=== PATIENT | male | born 1945 | race Two or more races ===

== ENCOUNTER 2024-07-04 16:05 | Inpatient (IN) | payer OTHER, MEDICAID ==
[~2024-07-04] VITALS: Ht 170.2 cm; Wt 76.2 kg
[2024-07-04 08:15] VITALS: BP 139/68; PULSE 94; RESP 20; TEMP 98.8; O2SAT 99
[2024-07-04] MEDS ORDERED: MORPHINE SULFATE INJ 2 MG/ml SYRG IV PRN (20:45)
[2024-07-04] MEDS ORDERED: ONDANSETRON HCL 4 MG/2 ML VIAL IV PRN (20:45)
[2024-07-04] MEDS ORDERED: ACETAMINOPHEN 325 MG TAB PO PRN (20:45)
[2024-07-04] MEDS ORDERED: DOCUSATE SOD 100 MG CAP PO PRN (20:45)
[2024-07-04] MEDS ORDERED: NITROGLYCERIN 0.4 MG SL TAB SL PRN (20:45)
[2024-07-04] MEDS ORDERED: VANCOMYCIN PER PHARMACY 0 MG IV SCH (20:45)
[2024-07-04 21:19] VITALS: PULSE 94; RESP 20; O2SAT 98
[2024-07-04] MEDS ORDERED: BUPR-133 PO (21:38)
[2024-07-04] MEDS ORDERED: ATOR20TA50 PO (21:38)
[2024-07-04] MEDS ORDERED: CARB25TA79 PO (21:38)
[2024-07-04] MEDS ORDERED: TAMS1CAP25 PO (21:38)
[2024-07-04] MEDS ORDERED: LEFL20TA PO (21:38)
[2024-07-04 21:43] VITALS: PULSE 101
[2024-07-04] MEDS: CARBIDOPA W LEVODOPA 25/100mg TABLET PO SCH (22:00)
[2024-07-04] MEDS ORDERED: ceFAZolin 1GM/50ML 50 ML IV SCH (22:00)
[2024-07-04] MEDS ORDERED: VANCOMYCIN 1.5GM/300ML IV ONE (22:45)
[2024-07-04] MEDS: ATORVASTATIN 20 MG TAB PO SCH (23:12)
[2024-07-04] MEDS: SODIUM CHLORIDE 0.9% 1,000 ML IV SCH (23:24)
[2024-07-04] MEDS: ceFAZolin 1GM/50ML 50 ML IV SCH (23:34)
[2024-07-04] MEDS: HYDROcodone-ACET 5/325MG TAB PO PRN (23:58)
[2024-07-05] VITALS (8 sets, daily range): BP systolic 90–148; BP diastolic 53–87; PULSE 84–100; RESP 14–19; TEMP 97.7–98.8; O2SAT 90–96
[2024-07-05] MEDS: VANCOMYCIN 1.5GM/300ML IV ONE (00:51)
--- NOTE | 2024-07-05 00:57 | DVHHP2 ---
GERRI MUÑOZ ALTERNATIVE ENERGY ENGINEER 07/05/24 0057: History of Present Illness Reason for Visit: Left foot cellulitis History of Present Illness 79 yo male pt with past medical history of hyperlipidemia, Parkinson's, enlarge prostate w cancer c/o ingrown toe nail on left great toe for the past three days. States that it has become infected and is causing left leg pain. There are no complaints of fevers, chills, shortness of breath, chest pain, palpitations. Patient was initially seen and treated at [facility] emergency department and transferred to [facility] per HMO request. Initial findings as follow: W 10.9, H&H 10.1/32.7, PLT 212 Na 139, K2.9/3.1, BUN 19, creatinine 1.21, GFR 60 LA 2.0/1.0 CRP 14 X-ray left foot no acute fracture or dislocation. Normal left foot xray CXR no evidence of acute thoracic pathology Left Lower extremity venous doppler: no evidence of DVT Cardiovascular: hyperipidemia Heme/Onc: Cancer Renal/: Benign prostatic enlarg. Smoke: No ALCOHOL: none Drugs: None Lives: with Family Review of Systems Constitutional: No: Fever, Chills, Sweats, Weakness, Malaise, Other Eyes: No: Pain, Vision change, Conjunctivae inflammation, Eyelid inflammation, Other, Redness ENT: No: Ear pain, Ear discharge, Nose pain, Nose discharge, Nose congestion, Mouth pain, Mouth swelling, Throat pain, Throat swelling, Other Respiratory: No: Cough, Dry, Shortness of breath, SOB with excertion, Wheezing, Hemoptysis, Pleuritic Pain, Sputum, Wheezing, Other Cardiovascular: No: Chest Pain, Palpitations, Orthopnea, Paroxysmal Noc. Dyspne a, Edema, Lt Headedness, Other Gastrointestinal: No: Nausea, Vomiting, Abdominal Pain, Diarrhea, Constipation, Melena, Hematochezia, Other Musculoskeletal: foot pain Skin: Other (Swelling redness to left foot, left great toe) Neurological: No: Weakness, Numbness, Incoordination, Change in speech, Confusion, Seizures, Other Allergies: Coded Allergies: NO KNOWN ALLERGIES (Unverified , 07/04/24) Medications Current Medications Medications Dose Ordered Sig/Ann-Marie Route Start Time Stop Time Status Last Admin Dose Admin Sodium Chloride 1,000 ml @ 75 mls/hr [id number] IV 07/04/24 20:45 07/05/24 10:04 07/04/24 23:24 75 MLS/HR Docusate Sodium 100 mg BIDPRN PRN PO 07/04/24 20:45 Acetaminophen 650 mg Q6HP PRN PO 07/04/24 20:45 Acetaminophen/ Hydrocodone Bitart 1 tab Q6HPRN PRN PO 07/04/24 20:45 07/04/24 23:58 1 TAB Ondansetron HCl 4 mg Q4HP PRN IV 07/04/24 20:45 Morphine Sulfate 2 mg Q4HPRN PRN IV 07/04/24 20:45 Enoxaparin Sodium 40 mg DAILY SC 07/05/24 10:00 Nitroglycerin 0.4 mg Q5MINP PRN SL 07/04/24 20:45 Morphine Sulfate 2 mg Q30M PRN IV 07/04/24 20:45 Vancomycin HCl 0 ml @ 0 mls/hr UD IV 07/04/24 20:45 UNV Atorvastatin Calcium 20 mg HS PO 07/04/24 22:00 07/04/24 23:12 20 MG Tamsulosin HCl 0.4 mg QPM PO 07/05/24 18:00 Carbidopa/Levodopa 1 tab QID PO 07/04/24 22:00 07/04/24 22:00 1 TAB Cefazolin Sodium 50 ml @ 100 mls/hr Q8HR IV 07/04/24 23:00 07/04/24 23:34 100 MLS/HR Exam General Appearance: Alert, Oriented X3, Cooperative, mild distress HEENT: Atraumatic, PERRLA, EOMI Respiratory: Clear to auscultation, Normal air movement Cardiovascular: Regular rate, Normal S1, Normal S2 Abdominal: Normal bowel sounds, Soft, No tenderness Extremities: Normal pulses, Other (Left great toe erythema with open skin. generalized eryhtema surrounding other toes.) Neuro: Normal speech, Strength at 5/5 X4 ext Psych/Mental Status: Mental status NL, Mood NL Assessment/Plan Assessment/Plan Left great toe wound with cellulitis Generalized cellulitis to left foot HX enlarged prostate Hx Parkinsons disease Hx hyperlipidemia Plan Admit to telemetry Consult in infectious disease. Wound Culture pending. Consult Vascular. IV ABX. IVF As needed analgesia. Continue home medications GI ppx pepcid / DVT ppx lovenox Plan discussed with: Patient My Orders Orders - GERRI MUÑOZ NP Procedure Category Date Status Time Admit ADMIT 07/04/24 Transmitted 20:31 Code Status CODE 07/04/24 Transmitted 20:31 Vital Signs MK 07/04/24 In Process 20:31 Review Orders With MK 07/04/24 In Process Adm. 20:31 Encourage Activity As MK 07/04/24 In Process Tolerate 20:31 Consistent DIET 07/05/24 Transmitted Carb(Ccho)Diabetes Breakfast Sodium Chloride 0.9% PHA 07/04/24 In Process 20:45 Oxygen By Face Mask RT 07/04/24 Transmitted 20:31 Docusate Sodium PHA 07/04/24 In Process Capsule (Colace 20:45 Acetaminophen Tablet PHA 07/04/24 In Process (Tylenol Tablet) 20:45 Notify Of Changes MK 07/04/24 In Process From Base 20:31 Advance Directive MK 07/04/24 In Process 20:31 Basic Metabolic Panel LAB 07/05/24 Logged 05:00 Basic Metabolic Panel LAB 07/06/24 Verified 05:00 Basic Metabolic Panel LAB 07/07/24 Verified 05:00 Basic Metabolic Panel LAB 07/08/24 Verified 05:00 Basic Metabolic Panel LAB 07/09/24 Verified 05:00 Complete Blood Count LAB 07/05/24 Logged 05:00 Complete Blood Count LAB 07/06/24 Verified 05:00 Complete Blood Count LAB 07/07/24 Verified 05:00 Complete Blood Count LAB 07/08/24 Verified 05:00 Complete Blood Count LAB 07/09/24 Verified 05:00 Patient Condition ORDERS 07/04/24 Transmitted 20:31 Allergies MK 07/04/24 In Process 20:31 Hydrocodone-Acet PHA 07/04/24 In Process 5/325mg Tab ([place] 20:45 Ondansetron Hcl PHA 07/04/24 In Process (Zofran) 20:45 Morphine Sulfate PHA 07/04/24 In Process Injection 20:45 Enoxaparin Sodium PHA 07/05/24 In Process (Lovenox) 10:00 Sequential MK 07/04/24 In Process Compression Device Nitroglycerin PHA 07/04/24 In Process Sublingual (Ntrostat 20:45 Morphine Sulfate PHA 11/14/24 In Process Injection 20:45 Stat Ekg For Chest MK 07/04/24 In Process Pain 20:31 Notify Of Changes MK 07/04/24 In Process From Base 20:31 Business Operations Specialist For MK 07/04/24 In Process 24 Hours 20:31 Emergency Dysrhythmia [facility] 07/04/24 In Process Protocol 20:31 Rhythm Strips Once MK 07/04/24 In Process Every Shift 20:31 Oxygen By Nasal RT 07/04/24 Transmitted Cannula 20:31 * Infectious Akiko- Dr. CONS 07/04/24 Transmitted Mallad 20:31 Consult CONS 07/04/24 Transmitted Vascular/Endovascular 20:31 Vancomycin Per PHA 07/04/24 Pending Pharmacy 20:45 * Wound Consult CONS 07/04/24 Transmitted Wound Culture W/ Gs FRAN 07/04/24 In Process 20:31 Atorvastatin (Lipitor) PHA 07/04/24 In Process 22:00 Tamsulosin PHA 07/05/24 In Process Hydrochloride (Flomax) 18:00 Carbidopa W Levodopa PHA 07/04/24 In Process 25/100mg (Sinemet 2 22:00 Vancomycin,Random LAB 07/05/24 Logged 05:00 Cefazolin 1gm/50ml PHA 07/04/24 In Process (Ancef) 23:00 Vancomycin 1.5gm/300ml PHA 07/05/24 In Process 00:00 Date of Service: Jul 05, 2024 Billing Provider: MATTIE SPRINGER MD Common Visit Codes: NOT BILLABLE MATTIE SPRINGER MD 07/05/24 1113: Review of Systems Allergies: Coded Allergies: NO KNOWN ALLERGIES (Unverified , 07/04/24) Additional Comments Additional Comments Additional Comments Patient seen and evaluated by nurse practitioner earlier today. Patient's chart is reviewed. I agree with nurse practitioner's evaluation, documentation, assessment and care plan as outlined. GERRI MUÑOZ NP Jul 05, 2024 00:57 MATTIE SPRINGER MD Jul 05, 2024 11:13
[2024-07-05 07:35] LABS: Basophils # (auto) 0.1 10 ^3/uL (0-0.2); Basophils % (auto) 0.8 % (0.0-2.0); Eosinophils # (auto) 0.3 10 ^3/uL (0-0.8); Eosinophils % (auto) 4.2 % (0.0-7.0); Hematocrit 29.3 % (41.0-53.0); Hemoglobin 9.5 g/dL (13.5-17.5); Lymphocytes % (auto) 12.5 % (10.0-50.0); Mean Corpuscular Hemoglobin 28.1 pg (28.0-32.0); Mean Corpuscular Hgb Conc. 32.3 g/dL (32.0-36.0); Mean Corpuscular Volume 87.2 fL (80.0-100.0); Monocytes # (auto) 0.8 10 ^3/uL (0-1.3); Monocytes % (auto) 10.8 % (0.0-12.0); Neutrophils # (auto) 5.4 10 ^3/uL (1.6-8.6); Neutrophils % (auto) 71.7 % (37.0-80.0); Platelet Count (auto) 180 10^3/uL (140-450); Red Blood Cells 3.36 10^6/uL (4.5-5.90); Red Cell Distribution Width 17.1 % (11.8-14.3); White Blood Cell 7.6 10^3/uL (4.4-10.8)
[2024-07-05 07:43] LABS: Anion Gap 9 (5-15); Carbon Dioxide 25 mmol/L (20-31); Chloride 110 mmol/L (98-107); Potassium 3.6 mmol/L (3.5-5.1); Sodium 144 mmol/L (136-145)
[2024-07-05 07:44] LABS: Calcium 8.3 mg/dL (8.7-10.4)
[2024-07-05 07:49] LABS: BUN/Creatinine Ratio 15.9 (10.0-20.0); Blood Urea Nitrogen 17 mg/dL (9-23); Glucose 98 mg/dL (74-106)
[2024-07-05] MEDS: ENOXAPARIN SOD 40 MG/0.4 ML SYRINGE SC SCH (08:15)
--- NOTE | 2024-07-05 11:27 | DVHINCON2 ---
Date of service: Jul 05, [address] Manley Reason for Consultation Left foot cellulitis History of Present Illness Patient is a 79-year-old male presents to the hospital for the complaint of ingrown toe nail on left great toe for the past three days. Patient states that it has become infected and is causing left leg pain. He denies any fevers, chills, shortness of breath, chest pain or palpitations. He was initially seen and treated at [facility] emergency department and transferred to [facility] per O request. Antibiotic status: Cefazolin Sodium - [Started 07/04 - Ongoing] Vancomycin HCL - [Started 07/04 - Ongoing] Initial findings as follow: W 10.9, H&H 10.1/32.7, PLT 212 Na 139, K2.9/3.1, BUN 19, creatinine 1.21, GFR 60 LA 2.0/1.0 CRP 14 X-ray left foot no acute fracture or dislocation. Normal left foot xray CXR no evidence of acute thoracic pathology Left Lower extremity venous Doppler: No evidence of DVT Past Medical History Patient's past medical history is significant for hyperlipidemia, Parkinson's, enlarge prostate w cancer Family History: Patient reports no known family medical history. Social History Smoke: No ALCOHOL: none Drugs: None Lives: with Family Allergies: Coded Allergies: NO KNOWN ALLERGIES (Unverified , 07/04/24) Home Meds Active Scripts Aspirin (Aspirin Ec) 81 Mg Tab, 81 MG PO DAILY, #60 TAB Prov:MATTIE SPRINGER MD 07/08/24 Sulfamethoxazole W/Trimethopri (Bactrim Ds Tablet) 1 Tab Tb, 1 TAB PO BID, #20 TAB Prov:MATTIE SPRINGER MD 07/08/24 Reported Medications Carbidopa-Levodopa (Carbidopa/Levodopa Odt 25-100 mg) 1 Tab Tab, 1 TAB PO, TAB 07/04/24 Tamsulosin HCl (Tamsulosin Hydrochloride) 0.4 Mg Cap, 0.4 MG PO, CAP 07/04/24 Bupropion Hcl (Bupropion Hcl Er) 150 Mg Tab, 1 TAB PO BID, #60 TAB 5 Refills 07/04/24 Leflunomide (Arava) 20 Mg Tab, 1 TAB PO DAILY, #30 TAB 07/04/24 Atorvastatin Calcium (ATORVASTATIN CALCIUM) 20 Mg Tab, 1 TAB PO DAILY, #30 TAB 5 Refills 07/04/24 Current Medications Current Medications Medications (Trade) Dose Ordered Sig/Ann-Marie Route PRN Reason Start Time Stop Time Status Last Admin Sodium Chloride 1,000 ml @ 75 mls/hr [id number] IV 07/04/24 20:45 07/05/24 10:04 DC 07/04/24 23:24 Docusate Sodium (Colace Capsule) 100 mg BIDPRN PRN PO FOR CONSTIPATION 07/04/24 20:45 Acetaminophen (Tylenol Tablet) 650 mg Q6HP PRN PO PAIN SCALE 1-3 OR TEMP>100.4 07/04/24 20:45 Acetaminophen/ Hydrocodone Bitart ([place] 5/325MG Tab) 1 tab Q6HPRN PRN PO MODERATE PAIN (4-6 PAIN SCALE) 07/04/24 20:45 07/04/24 23:58 Ondansetron HCl (Zofran) 4 mg Q4HP PRN IV NAUSEA / VOMITING 07/04/24 20:45 Morphine Sulfate 2 mg Q4HPRN PRN IV SEVERE PAIN (7-10 PAIN SCALE) 07/04/24 20:45 Enoxaparin Sodium (Lovenox) 40 mg DAILY SC 07/05/24 10:00 07/05/24 08:15 Nitroglycerin (Ntrostat Sublingual) 0.4 mg Q5MINP PRN SL FOR CHEST PAIN 07/04/24 20:45 Morphine Sulfate 2 mg Q30M PRN IV FOR CHEST PAIN 07/04/24 20:45 Vancomycin HCl 0 ml @ 0 mls/hr UD IV 07/04/24 20:45 UNV Cefazolin Sodium 50 ml @ 100 mls/hr Q8HR IV 07/04/24 22:00 07/04/24 23:33 DC Atorvastatin Calcium (Lipitor) 20 mg HS PO 07/04/24 22:00 07/04/24 23:12 Tamsulosin HCl (Flomax) 0.4 mg QPM PO 07/05/24 18:00 Carbidopa/Levodopa (Sinemet 25/ 100MG) 1 tab QID PO 07/04/24 22:00 07/05/24 05:41 Cefazolin Sodium 50 ml @ 100 mls/hr Q8HR IV 07/04/24 23:00 07/05/24 05:40 Review of Systems Constitutional: No: Fever, Chills, Sweats, Weakness, Malaise, Other Eyes: No: Pain, Vision change, Conjunctivae inflammation, Eyelid inflammation, Other, Redness ENT: No: Ear pain, Ear discharge, Nose pain, Nose discharge, Nose congestion, Mouth pain, Mouth swelling, Throat pain, Throat swelling, Other Respiratory: No: Cough, Dry, Shortness of breath, SOB with excertion, Wheezing, Hemoptysis, Pleuritic Pain, Sputum, Wheezing, Other Cardiovascular: No: Chest Pain, Palpitations, Orthopnea, Paroxysmal Noc. Dyspnea, Edema, Lt Headedness, Other Gastrointestinal: No: Nausea, Vomiting, Abdominal Pain, Diarrhea, Constipation, Melena, Hematochezia, Other Musculoskeletal: Reports foot pain Skin: Other (Swelling redness to left foot, left great toe) Neurological: No: Weakness, Numbness, Incoordination, Change in speech, Confusion, Seizures, Other Vital Signs Vital Signs Date Time Temp Pulse Resp B/P (MAP) Pulse Ox O2 Delivery O2 Flow Rate FiO2 07/05/24 08:19 98.8 87 18 129/74 (92) 93 98.8 07/05/24 08:00 Room Air* 0 21 Physical Exam General Appearance: Alert, Oriented X3, Cooperative, mild distress HEENT: Atraumatic, PERRLA, EOMI Respiratory: Clear to auscultation, Normal air movement Cardiovascular: Regular rate, Normal S1, Normal S2 Abdominal: Normal bowel sounds, Soft, No tenderness Extremities: Normal pulses, Other (Left great toe erythema with open skin. generalized eryhtema surrounding other toes.) Neuro: Normal speech, Strength at 5/5 X4 ext Psych/Mental Status: Mental status NL, Mood NL Labs/Diagnostic Data Labs Test 07/05/24 07:02 Range/Units White Blood Count 7.6 4.4-10.8 10^3/uL Red Blood Count 3.36 L 4.5-5.90 10^6/uL Hemoglobin 9.5 L 13.5-17.5 g/dL Hematocrit 29.3 L 41.0-53.0 % Mean Corpuscular Volume 87.2 80.0-100.0 fL Mean Corpuscular Hemoglobin 28.1 28.0-32.0 pg Mean Corpuscular Hemoglobin Concent 32.3 32.0-36.0 g/dL Red Cell Distribution Width 17.1 H 11.8-14.3 % Platelet Count 180 140-450 10^3/uL Mean Platelet Volume 7.1 6.9-10.8 fL Neutrophils (%) (Auto) 71.7 37.0-80.0 % Lymphocytes (%) (Auto) 12.5 10.0-50.0 % Monocytes (%) (Auto) 10.8 0.0-12.0 % Eosinophils (%) (Auto) 4.2 0.0-7.0 % Basophils (%) (Auto) 0.8 0.0-2.0 % Neutrophils # (Auto) 5.4 1.6-8.6 10 ^3/uL Lymphocytes # (Auto) 1.0 0.4-5.4 10 ^3/uL Monocytes # (Auto) 0.8 0-1.3 10 ^3/uL Eosinophils # (Auto) 0.3 0-0.8 10 ^3/uL Basophils # (Auto) 0.1 0-0.2 10 ^3/uL Nucleated Red Blood Cells 0.0 % Sodium Level 144 136-145 mmol/L Potassium Level 3.6 3.5-5.1 mmol/L Chloride Level 110 H 98-107 mmol/L Carbon Dioxide Level 25 20-31 mmol/L Anion Gap 9 5-15 Blood Urea Nitrogen 17 9-23 mg/dL Creatinine 1.07 0.700-1.30 mg/dL Glomerular Filtration Rate Calc 70 >90 mL/min BUN/Creatinine Ratio 15.9 10.0-20.0 Serum Glucose 98 74-106 mg/dL Calcium Level 8.3 L 8.7-10.4 mg/dL Random Vancomycin Level 27.6 H 5-10 ug/mL Assessment Patient is a 79-year-old male presents to the hospital with: Left great toe wound with cellulitis Generalized cellulitis to left foot Recommendations: recommend Vancomycin/ Ceftriaxone podiatry consult --Wound culture: Pending x ray shows no deep infection monitor for progress Thank you for consult. Plan discussed with: Patient HELGA OSBORNE MD Jul 05, 2024 11:27
[2024-07-05 11:55] LABS: INR 1.23 (0.9-1.15); Partial Thromboplastin Time 37.4 SEC (24.5-34.5); Prothrombin Time 12.8 sec (9.3-11.8)
--- NOTE | 2024-07-05 12:00 | DVH ---
CLINICAL INFORMATION: 79 years old, Male; preoperative examination. TECHNIQUE: Single AP portable chest radiograph was obtained. COMPARISON: Prior chest radiograph dated 05/26/2023. FINDINGS: Lungs: Bilateral mild perihilar interstitial opacities. Mild atelectasis in the lung bases. No focal consolidation. Cardiac: Heart size is within normal limits. Pulmonary vasculature: Mildly prominent pulmonary vasculature. Mediastinum/sharyn: Unremarkable. Bones: No acute osseous abnormality identified. Other: No other significant findings. IMPRESSION: 1. Prominence of the pulmonary vasculature and mild bilateral perihilar interstitial opacities, may b e seen with a degree of pulmonary vascular congestion in the appropriate clinical setting. Correlate with clinical findings. 2. No focal consolidation visualized.
[2024-07-05] MEDS: TAMSULOSIN HYDROCHLORIDE 0.4 MG CAP PO SCH (16:47)
[2024-07-05] MEDS: MORPHINE SULFATE INJ 2 MG/ml SYRG IV PRN (22:08)
[2024-07-06] VITALS (8 sets, daily range): BP systolic 117–141; BP diastolic 64–80; PULSE 85–99; RESP 16–20; TEMP 98.2–98.9; O2SAT 90–97
[2024-07-06 07:01] LABS: Urine Bacteria None Seen /hpf (None Seen)
[2024-07-06 07:10] LABS: Urine Blood 1+ /uL (Negative); Urine Clarity Clear (Clear); Urine Protein, UAD Negative (Negative); Urine Specific Gravity 1.009 (1.001-1.035); Urine Urobilinogen Normal (Negative); Urine WBC <1 /hpf (0 - 3)
[2024-07-06 07:11] LABS: Urine Color Light-Yellow (Yellow)
[2024-07-06 07:36] LABS: Chloride 108 mmol/L (98-107); Potassium 3.2 mmol/L (3.5-5.1); Sodium 141 mmol/L (136-145)
[2024-07-06 07:37] LABS: Anion Gap 8 (5-15); Calcium 8.4 mg/dL (8.7-10.4); Carbon Dioxide 25 mmol/L (20-31)
[2024-07-06 07:42] LABS: BUN/Creatinine Ratio 14.4 (10.0-20.0); Blood Urea Nitrogen 14 mg/dL (9-23); Glucose 95 mg/dL (74-106)
--- NOTE | 2024-07-06 09:52 | DVHPN2 ---
Progress Note - Dictate Date Seen: Jul 06, 2024 Medical Necessity Reason Pt with a Central, PICC or Fol: No Subjective Patient was seen and evaluated at bedside. He is awake, alert and oriented. Vitals reviewed. 07/05, Chest x-ray revealed: 1. Prominence of the pulmonary vasculature and mild bilateral perihilar interstitial opacities, may be seen with a degree of pulmonary vascular congestion in the appropriate clinical setting. Correlate with clinical findings. 2. No focal consolidation visualized. vital signs Vital Sign Date Time Temp Pulse Resp B/P (MAP) Pulse Ox O2 Delivery O2 Flow Rate FiO2 07/06/24 05:00 98.5 97 18 140/77 (98) 90 98.5 07/05/24 20:00 Room Air* 0 21 Total Intake and Output 07/05/24 07/05/24 07/06/24 15:00 23:00 07:00 Intake Total 990 ml 600 ml Output Total 4 ml 625 ml Balance 986 ml -25 ml medications Current Medications Medications Dose Ordered Sig/Ann-Marie Route Start Time Stop Time Status Last Admin Dose Admin Docusate Sodium 100 mg BIDPRN PRN PO 07/04/24 20:45 Acetaminophen 650 mg Q6HP PRN PO 07/04/24 20:45 Acetaminophen/ Hydrocodone Bitart 1 tab Q6HPRN PRN PO 07/04/24 20:45 07/05/24 16:49 1 TAB Ondansetron HCl 4 mg Q4HP PRN IV 07/04/24 20:45 Morphine Sulfate 2 mg Q4HPRN PRN IV 07/04/24 20:45 07/05/24 22:08 2 MG Enoxaparin Sodium 40 mg DAILY SC 07/05/24 10:00 07/06/24 07:36 40 MG Nitroglycerin 0.4 mg Q5MINP PRN SL 07/04/24 20:45 Morphine Sulfate 2 mg Q30M PRN IV 07/04/24 20:45 Vancomycin HCl 0 ml @ 0 mls/hr UD IV 07/04/24 20:45 Atorvastatin Calcium 20 mg HS PO 07/04/24 22:00 07/05/24 21:48 20 MG Tamsulosin HCl 0.4 mg QPM PO 07/05/24 18:00 07/05/24 16:47 0.4 MG Carbidopa/Levodopa 1 tab QID PO 07/04/24 22:00 07/06/24 05:41 1 TAB Cefazolin Sodium 50 ml @ 100 mls/hr Q8HR IV 07/04/24 23:00 07/06/24 05:40 100 MLS/HR objective General Appearance: Alert, Oriented X3, Cooperative, mild distress HEENT: Atraumatic, PERRLA, EOMI Respiratory: Clear to auscultation, Normal air movement Cardiovascular: Regular rate, Normal S1, Normal S2 Abdominal: Normal bowel sounds, Soft, No tenderness Extremities: Normal pulses, Other (Left great toe erythema with open skin. generalized eryhtema surrounding other toes.) Neuro: Normal speech, Strength at 5/5 X4 ext Psych/Mental Status: Mental status NL, Mood NL laboratory and microbiology Laboratory Tests 07/06/24 07:08 07/05/24 07:02 Test 07/06/24 07:08 Range/Units Serum Glucose 95 74-106 mg/dL Assessment/Plan Patient is a 79-year-old male presents to the hospital with: Left great toe wound with cellulitis Generalized cellulitis to left foot Recommendations: recommend Vancomycin/ Ceftriaxone podiatry consult --Wound culture: Pending x ray shows no deep infection monitor for progress Thank you for consult. Plan discussed with: Patient HELGA OSBORNE MD Jul 06, 2024 09:52
[2024-07-06 11:47] LABS: Basophils # (auto) 0.1 10 ^3/uL (0-0.2); Eosinophils # (auto) 0.2 10 ^3/uL (0-0.8); Eosinophils % (auto) 2.9 % (0.0-7.0); Hematocrit 27.6 % (41.0-53.0); Hemoglobin 9.2 g/dL (13.5-17.5); Lymphocytes # (auto) 1.8 10 ^3/uL (0.4-5.4); Lymphocytes % (auto) 24.3 % (10.0-50.0); Mean Corpuscular Hemoglobin 28.6 pg (28.0-32.0); Mean Corpuscular Hgb Conc. 33.1 g/dL (32.0-36.0); Mean Corpuscular Volume 86.2 fL (80.0-100.0); Monocytes # (auto) 0.7 10 ^3/uL (0-1.3); Monocytes % (auto) 9.6 % (0.0-12.0); Neutrophils # (auto) 4.7 10 ^3/uL (1.6-8.6); Neutrophils % (auto) 62.2 % (37.0-80.0); Platelet Count (auto) 192 10^3/uL (140-450); Red Blood Cells 3.21 10^6/uL (4.5-5.90); White Blood Cell 7.5 10^3/uL (4.4-10.8)
--- NOTE | 2024-07-06 16:48 | DVHPN2 ---
Progress Note - Dictate Date Seen: Jul 06, 2024 Medical Necessity Reason Pt with a Central, PICC or Fol: No Subjective Clinically stable. Evaluated by Infectious Disease. Preliminary wound cultures growing staph aureus organisms. vital signs Vital Sign Date Time Temp Pulse Resp B/P (MAP) Pulse Ox O2 Delivery O2 Flow Rate FiO2 07/06/24 13:00 98.4 88 20 135/79 (97) 92 98.4 07/06/24 08:00 Room Air* 0 21 Total Intake and Output 07/05/24 07/05/24 07/06/24 15:00 23:00 07:00 Intake Total 50 ml 990 ml 600 ml Output Total 4 ml 625 ml Balance 50 ml 986 ml -25 ml medications Current Medications Medications Dose Ordered Sig/Ann-Marie Route Start Time Stop Time Status Last Admin Dose Admin Docusate Sodium 100 mg BIDPRN PRN PO 07/04/24 20:45 Acetaminophen 650 mg Q6HP PRN PO 07/04/24 20:45 Acetaminophen/ Hydrocodone Bitart 1 tab Q6HPRN PRN PO 07/04/24 20:45 07/05/24 16:49 1 TAB Ondansetron HCl 4 mg Q4HP PRN IV 07/04/24 20:45 Morphine Sulfate 2 mg Q4HPRN PRN IV 07/04/24 20:45 07/05/24 22:08 2 MG Enoxaparin Sodium 40 mg DAILY SC 07/05/24 10:00 07/06/24 07:36 40 MG Nitroglycerin 0.4 mg Q5MINP PRN SL 07/04/24 20:45 Morphine Sulfate 2 mg Q30M PRN IV 07/04/24 20:45 Vancomycin HCl 0 ml @ 0 mls/hr UD IV 07/04/24 20:45 Atorvastatin Calcium 20 mg HS PO 07/04/24 22:00 07/05/24 21:48 20 MG Tamsulosin HCl 0.4 mg QPM PO 07/05/24 18:00 07/05/24 16:47 0.4 MG Carbidopa/Levodopa 1 tab QID PO 07/04/24 22:00 07/06/24 11:57 1 TAB Cefazolin Sodium 50 ml @ 100 mls/hr Q8HR IV 07/04/24 23:00 07/06/24 11:57 100 MLS/HR Vancomycin HCl 500 mg/Dextrose 100 ml @ 200 mls/hr Q12H IV 07/06/24 21:00 objective Left foot significant ingrown toenails on his toes. Big toe is being cleaned with Betadine and wound care is being done. No drainage or foul smell noted. Erythema swelling has improved. laboratory and microbiology Laboratory Tests 07/06/24 11:37 07/06/24 07:08 Test 07/06/24 07:08 Range/Units Serum Glucose 95 74-106 mg/dL Assessment/Plan Left big toe cellulitis/chronic wound with ingrown toenail BPH Hypertension Clinically stable. Continue current antibiotics including vancomycin as he is unknown. I will do a follow up foot/toe x-rays today. Wait for vascular surgery recommendations/evaluation on Monday. Further clinical management per clinical course. Discussed with the patient nurse regarding care plan. Plan discussed with: Other MATTIE SPRINGER MD Jul 06, 2024 16:48
[2024-07-06] MEDS: POTASSIUM CHL 20 Meq TABLET PO ONE (17:37)
--- NOTE | 2024-07-06 18:04 | DVH ---
CLINICAL INDICATION: toe cellulitis TECHNIQUE: 2 radiographic views of the left foot were obtained. Comparison: None FINDINGS/IMPRESSION: There is no evidence of acute fracture or dislocation. Plantar calcaneal enthesophyte. The visualized joint space is well maintained. The alignment is anatomical. There is no radiopaque foreign body.
[2024-07-07] VITALS (8 sets, daily range): BP systolic 106–146; BP diastolic 63–81; PULSE 79–94; RESP 16–97; TEMP 98–98.5; O2SAT 92–97
[2024-07-07] MEDS: VANCOMYCIN 500 MG in D5W 5% 100 ML IV SCH ×2 (01:18→13:50)
[2024-07-07 05:14] LABS: Basophils # (auto) 0.1 10 ^3/uL (0-0.2); Basophils % (auto) 0.9 % (0.0-2.0); Eosinophils # (auto) 0.3 10 ^3/uL (0-0.8); Eosinophils % (auto) 5.2 % (0.0-7.0); Hematocrit 28.9 % (41.0-53.0); Hemoglobin 9.6 g/dL (13.5-17.5); Lymphocytes # (auto) 1.2 10 ^3/uL (0.4-5.4); Lymphocytes % (auto) 20.7 % (10.0-50.0); Mean Corpuscular Hemoglobin 28.3 pg (28.0-32.0); Mean Corpuscular Hgb Conc. 33.2 g/dL (32.0-36.0); Mean Corpuscular Volume 85.5 fL (80.0-100.0); Monocytes # (auto) 0.6 10 ^3/uL (0-1.3); Monocytes % (auto) 10.8 % (0.0-12.0); Neutrophils # (auto) 3.6 10 ^3/uL (1.6-8.6); Neutrophils % (auto) 62.4 % (37.0-80.0); Nucleated Red Blood Cells % 0.1 %; Platelet Count (auto) 194 10^3/uL (140-450); Red Blood Cells 3.38 10^6/uL (4.5-5.90); Red Cell Distribution Width 17.4 % (11.8-14.3); White Blood Cell 5.8 10^3/uL (4.4-10.8)
[2024-07-07 05:34] LABS: Calcium 8.9 mg/dL (8.7-10.4); Chloride 110 mmol/L (98-107); Potassium 3.7 mmol/L (3.5-5.1); Sodium 143 mmol/L (136-145)
[2024-07-07 05:35] LABS: Anion Gap 7 (5-15); Carbon Dioxide 26 mmol/L (20-31)
[2024-07-07 05:40] LABS: BUN/Creatinine Ratio 17.5 (10.0-20.0); Blood Urea Nitrogen 18 mg/dL (9-23); Glucose 96 mg/dL (74-106)
--- NOTE | 2024-07-07 11:38 | DVHPN2 ---
Progress Note - Dictate Date Seen: Jul 07, 2024 Medical Necessity Reason Pt with a Central, PICC or Fol: No Subjective Patient was seen and evaluated at bedside. He is awake, alert and oriented. Vitals reviewed. 07/05, Chest x-ray revealed: 1. Prominence of the pulmonary vasculature and mild bilateral perihilar interstitial opacities, may be seen with a degree of pulmonary vascular congestion in the appropriate clinical setting. Correlate with clinical findings. 2. No focal consolidation visualized. 07/06 left foot x-ray of left foot : no evidence of fracture or dislocation Preliminary wound cultures growing staph aureus organisms. vital signs Vital Sign Date Time Temp Pulse Resp B/P (MAP) Pulse Ox O2 Delivery O2 Flow Rate FiO2 07/07/24 09:00 98.1 84 20 145/81 (102) 93 98.1 07/07/24 08:00 Room Air* 0 21 Total Intake and Output 07/06/24 07/06/24 07/07/24 15:00 23:00 07:00 Intake Total 50 ml 250 ml 650 ml Balance 50 ml 250 ml 650 ml medications Current Medications Medications Dose Ordered Sig/Ann-Marie Route Start Time Stop Time Status Last Admin Dose Admin Docusate Sodium 100 mg BIDPRN PRN PO 07/04/24 20:45 Acetaminophen 650 mg Q6HP PRN PO 07/04/24 20:45 Acetaminophen/ Hydrocodone Bitart 1 tab Q6HPRN PRN PO 07/04/24 20:45 07/05/24 16:49 1 TAB Ondansetron HCl 4 mg Q4HP PRN IV 07/04/24 20:45 Morphine Sulfate 2 mg Q4HPRN PRN IV 07/04/24 20:45 07/05/24 22:08 2 MG Enoxaparin Sodium 40 mg DAILY SC 07/05/24 10:00 07/07/24 09:02 40 MG Nitroglycerin 0.4 mg Q5MINP PRN SL 07/04/24 20:45 Morphine Sulfate 2 mg Q30M PRN IV 07/04/24 20:45 Vancomycin HCl 0 ml @ 0 mls/hr UD IV 07/04/24 20:45 Atorvastatin Calcium 20 mg HS PO 07/04/24 22:00 07/06/24 21:49 20 MG Tamsulosin HCl 0.4 mg QPM PO 07/05/24 18:00 07/06/24 17:35 0.4 MG Carbidopa/Levodopa 1 tab QID PO 07/04/24 22:00 07/07/24 06:06 1 TAB Cefazolin Sodium 50 ml @ 100 mls/hr Q8HR IV 07/04/24 23:00 07/07/24 06:06 100 MLS/HR Vancomycin HCl 500 mg/Dextrose 100 ml @ 200 mls/hr BID@0100,1300 IV 07/07/24 13:00 objective General Appearance: Alert, Oriented X3, Cooperative, mild distress HEENT: Atraumatic, PERRLA, EOMI Respiratory: Clear to auscultation, Normal air movement Cardiovascular: Regular rate, Normal S1, Normal S2 Abdominal: Normal bowel sounds, Soft, No tenderness Extremities: Normal pulses, Other (Left great toe erythema with open skin. generalized eryhtema surrounding other toes.) Neuro: Normal speech, Strength at 5/5 X4 ext Psych/Mental Status: Mental status NL, Mood NL laboratory and microbiology Laboratory Tests 07/07/24 04:34 Test 07/07/24 04:34 Range/Units Serum Glucose 96 74-106 mg/dL Assessment/Plan Patient is a 79-year-old male presents to the hospital with: Left great toe wound with cellulitis Generalized cellulitis to left foot Recommendations: recommend Vancomycin/ Ceftriaxone podiatry consult --Wound culture: no growth x ray shows no deep infection monitor for progress Thank you for consult. Dietary Evaluation Review Comments: 1. Continue current diet Expected Outcomes/Goals: 1. Pt will consume >75% of estimated needs within 3-5 days Plan discussed with: HELGA Edouard MD Jul 07, 2024 11:38
--- NOTE | 2024-07-07 12:56 | DVHPN2 ---
Progress Note - Dictate Date Seen: Jul 07, 2024 Medical Necessity Reason Pt with a Central, PICC or Fol: No Subjective Clinically stable. Waiting for vascular/podiatry evaluation. vital signs Vital Sign Date Time Temp Pulse Resp B/P (MAP) Pulse Ox O2 Delivery O2 Flow Rate FiO2 07/07/24 09:00 98.1 84 20 145/81 (102) 93 98.1 07/07/24 08:00 Room Air* 0 21 Total Intake and Output 07/06/24 07/06/24 07/07/24 15:00 23:00 07:00 Intake Total 50 ml 250 ml 650 ml Balance 50 ml 250 ml 650 ml medications Current Medications Medications Dose Ordered Sig/Ann-Marie Route Start Time Stop Time Status Last Admin Dose Admin Docusate Sodium 100 mg BIDPRN PRN PO 07/04/24 20:45 Acetaminophen 650 mg Q6HP PRN PO 07/04/24 20:45 Acetaminophen/ Hydrocodone Bitart 1 tab Q6HPRN PRN PO 07/04/24 20:45 07/05/24 16:49 1 TAB Ondansetron HCl 4 mg Q4HP PRN IV 07/04/24 20:45 Morphine Sulfate 2 mg Q4HPRN PRN IV 07/04/24 20:45 07/05/24 22:08 2 MG Enoxaparin Sodium 40 mg DAILY SC 07/05/24 10:00 07/07/24 09:02 40 MG Nitroglycerin 0.4 mg Q5MINP PRN SL 07/04/24 20:45 Morphine Sulfate 2 mg Q30M PRN IV 07/04/24 20:45 Vancomycin HCl 0 ml @ 0 mls/hr UD IV 07/04/24 20:45 Atorvastatin Calcium 20 mg HS PO 07/04/24 22:00 07/06/24 21:49 20 MG Tamsulosin HCl 0.4 mg QPM PO 07/05/24 18:00 07/06/24 17:35 0.4 MG Carbidopa/Levodopa 1 tab QID PO 07/04/24 22:00 07/07/24 12:10 1 TAB Cefazolin Sodium 50 ml @ 100 mls/hr Q8HR IV 07/04/24 23:00 07/07/24 12:10 100 MLS/HR Vancomycin HCl 500 mg/Dextrose 100 ml @ 200 mls/hr BID@0100,1300 IV 07/07/24 13:00 objective Left foot significant ingrown toenails on his toes. Big toe is being cleaned with Betadine and wound care is being done. No drainage or foul smell noted. Erythema swelling has improved. laboratory and microbiology Laboratory Tests 07/07/24 04:34 Test 07/07/24 04:34 Range/Units Serum Glucose 96 74-106 mg/dL Assessment/Plan Left big toe cellulitis/chronic wound with ingrown toenail BPH Hypertension Clinically stable. We will order arterial Dopplers to assess peripheral arterial disease. Wait for vascular consultation which will be done tomorrow to make further recommendations. Otherwise continue current antibiotics and supportive care and treatment. Discussed with the nurse regarding care plan. Dietary Evaluation Review Comments: 1. Continue current diet Expected Outcomes/Goals: 1. Pt will consume >75% of estimated needs within 3-5 days Plan discussed with: Other MATTIE SPRINGER MD Jul 07, 2024 12:56
--- NOTE | 2024-07-07 14:22 | DVH ---
Bilateral Lower Extremity Arterial Duplex Clinical History: PAD Comparison: None Technique: Duplex Doppler evaluation including color Doppler and spectral/pulsed waveform analysis of the lower extremity arteries was performed. Findings: RIGHT: Peak systolic velocities are as follows: OPERATIONS SUPPORT MANAGER 130 cm/s Deep femoral 73 cm/s SFA proximal 115 cm/s SFA mid-portion 112 cm/s SFA distal 117 cm/s Popliteal 92 cm/s Posterior tibial 104 cm/s Dorsalis pedis 79 cm/s The waveforms are triphasic with diastolic flow. LEFT: Peak systolic velocities are as follows: OPERATIONS SUPPORT MANAGER 75 cm/s Deep femoral 77 cm/s SFA proximal 117 cm/s SFA mid-portion 102 cm/s SFA distal 128 cm/s Popliteal 58 cm/s Posterior tibial 80 cm/s Dorsalis pedis 75 cm/s Monophasic waveforms in the posterior tibial and dorsalis pedis arteries suggestive of at least mild grade stenoses. The remaining waveforms are triphasic. IMPRESSION: 1. Right lower extremity: No hemodynamically significant stenosis based on peak systolic velocity cri teria. 2. Left lower extremity: Monophasic waveforms in the posterior tibial and dorsalis pedis artery sugge sting at least mild grade stenoses.
[2024-07-08 01:00] VITALS: BP 154/63; PULSE 83; RESP 18; TEMP 98.3; O2SAT 94
[2024-07-08 05:00] VITALS: BP 157/79; PULSE 79; RESP 18; TEMP 98.1; O2SAT 93
[2024-07-08 06:39] LABS: Basophils # (auto) 0.1 10 ^3/uL (0-0.2); Basophils % (auto) 1.2 % (0.0-2.0); Eosinophils # (auto) 0.4 10 ^3/uL (0-0.8); Hematocrit 31.8 % (41.0-53.0); Hemoglobin 10.4 g/dL (13.5-17.5); Lymphocytes # (auto) 1.5 10 ^3/uL (0.4-5.4); Lymphocytes % (auto) 24.2 % (10.0-50.0); Mean Corpuscular Hemoglobin 28.3 pg (28.0-32.0); Mean Corpuscular Hgb Conc. 32.7 g/dL (32.0-36.0); Mean Corpuscular Volume 86.4 fL (80.0-100.0); Monocytes # (auto) 0.6 10 ^3/uL (0-1.3); Monocytes % (auto) 9.4 % (0.0-12.0); Neutrophils # (auto) 3.6 10 ^3/uL (1.6-8.6); Neutrophils % (auto) 59.2 % (37.0-80.0); Nucleated Red Blood Cells % 0.1 %; Platelet Count (auto) 223 10^3/uL (140-450); Red Blood Cells 3.68 10^6/uL (4.5-5.90); White Blood Cell 6.1 10^3/uL (4.4-10.8)
[2024-07-08 08:00] VITALS: PULSE 79
[2024-07-08 09:00] VITALS: BP 123/69; PULSE 87; RESP 20; TEMP 97.8; O2SAT 92
--- NOTE | 2024-07-08 11:16 | DVHCONRES ---
Date Seen: Jul 08, 2024 Resident Creating Document: HOMAR HAUSER Jr., MD Referring Physician Vineet Reason for Consultation Left 1st toe infection History of Present Illness 79 yo male pt with past medical history of hyperlipidemia, Parkinson's, enlarge prostate w cancer c/o ingrown toe nail on left great toe for the past three days. States that it has become infected and is causing left leg pain. There are no complaints of fevers, chills, shortness of breath, chest pain, palpitations. Patient was states since being hospitalized in on IV antibiotics pain has diminished and swelling has improved. No recent fevers. No history of claudication or rest pain. Patient was a nonsmoker. Past Medical History Hyperlipidemia prostate cancer Past Surgical History None Family History: Patient reports no known family medical history. Social History Nonsmoker nondrinker Allergies: Coded Allergies: NO KNOWN ALLERGIES (Unverified , 07/04/24) Home Meds Reported Medications Carbidopa-Levodopa (Carbidopa/Levodopa Odt 25-100 mg) 1 Tab Tab, 1 TAB PO, TAB 07/04/24 Tamsulosin HCl (Tamsulosin Hydrochloride) 0.4 Mg Cap, 0.4 MG PO, CAP 07/04/24 Bupropion Hcl (Bupropion Hcl Er) 150 Mg Tab, 1 TAB PO BID, #60 TAB 5 Refills 07/04/24 Leflunomide (Arava) 20 Mg Tab, 1 TAB PO DAILY, #30 TAB 07/04/24 Atorvastatin Calcium (ATORVASTATIN CALCIUM) 20 Mg Tab, 1 TAB PO DAILY, #30 TAB 5 Refills 07/04/24 Current Medications Current Medications Medications (Trade) Dose Ordered Sig/Ann-Marie Route PRN Reason Start Time Stop Time Status Last Admin Vancomycin HCl 500 mg/Dextrose 100 ml @ 200 mls/hr BID@0100,1300 IV 07/07/24 13:00 07/08/24 00:37 Review of Systems All systems reviewed otherwise negative other than ones in the HPI. Vital Signs Vital Signs Date Time Temp Pulse Resp B/P (MAP) Pulse Ox O2 Delivery O2 Flow Rate FiO2 07/08/24 09:00 97.8 87 20 123/69 (87) 92 97.8 07/07/24 20:00 Room Air* 0 21 Physical Exam Head eyes ears nose and throat exam as are nonicteric conjunctiva was pink neck was supple no JVD no lymphadenopathy no carotid bruits lungs are clear to auscultation heart was regular rate and rhythm abdomen is soft and nontender with no pulsatile abdominal masses or bruits lower extremities palpable femoral and palpable pedal pulses bilaterally. He had some mild edema 1+ of his left foot. He has a left 1st toe minimal erythema. He has toe fungus noted in all toes. Labs/Diagnostic Data Labs Test 07/08/24 05:35 07/07/24 04:34 07/06/24 07:08 07/06/24 06:50 Range/Units White Blood Count 6.1 4.4-10.8 10^3/uL Red Blood Count 3.68 L 4.5-5.90 10^6/uL Hemoglobin 10.4 L 13.5-17.5 g/dL Hematocrit 31.8 #L 41.0-53.0 % Mean Corpuscular Volume 86.4 80.0-100.0 fL Mean Corpuscular Hemoglobin 28.3 28.0-32.0 pg Mean Corpuscular Hemoglobin Concent 32.7 32.0-36.0 g/dL Red Cell Distribution Width 17.0 H 11.8-14.3 % Platelet Count 223 140-450 10^3/uL Mean Platelet Volume 7.4 6.9-10.8 fL Neutrophils (%) (Auto) 59.2 37.0-80.0 % Lymphocytes (%) (Auto) 24.2 10.0-50.0 % Monocytes (%) (Auto) 9.4 0.0-12.0 % Eosinophils (%) (Auto) 6.0 0.0-7.0 % Basophils (%) (Auto) 1.2 0.0-2.0 % Neutrophils # (Auto) 3.6 1.6-8.6 10 ^3/uL Lymphocytes # (Auto) 1.5 0.4-5.4 10 ^3/uL Monocytes # (Auto) 0.6 0-1.3 10 ^3/uL Eosinophils # (Auto) 0.4 0-0.8 10 ^3/uL Basophils # (Auto) 0.1 0-0.2 10 ^3/uL Nucleated Red Blood Cells 0.1 % Creatinine 0.99 0.700-1.30 mg/dL Glomerular Filtration Rate Calc 77 >90 mL/min Sodium Level 143 136-145 mmol/L Potassium Level 3.7 3.5-5.1 mmol/L Chloride Level 110 H 98-107 mmol/L Carbon Dioxide Level 26 20-31 mmol/L Anion Gap 7 5-15 Blood Urea Nitrogen 18 9-23 mg/dL BUN/Creatinine Ratio 17.5 10.0-20.0 Serum Glucose 96 74-106 mg/dL Calcium Level 8.9 8.7-10.4 mg/dL Random Vancomycin Level 9.1 5-10 ug/mL Urine Color Light-yellow Yellow Urine Clarity Clear Clear Urine pH 7.0 5.0-9.0 Urine Specific [place] 1.009 1.001-1.035 Urine Protein Negative Negative Urine Ketones Trace Negative Urine Blood 1+ H Negative /uL Urine Nitrite Negative Negative Urine Bilirubin Negative Negative Urine Urobilinogen Normal Negative mg/dL Urine Leukocyte Esterase Negative Negative /uL Urine RBC 1 0 - 3 /hpf Urine WBC <1 0 - 3 /hpf Urine Squamous Epithelial Cells Few <5 /hpf Urine Bacteria None seen None Seen /hpf Urine Glucose Normal Normal mg/dL Test 07/05/24 07:02 Range/Units Prothrombin Time 12.8 H 9.3-11.8 sec Prothrombin Time INR 1.23 H 0.9-1.15 Activated Partial Thromboplast Time 37.4 H 24.5-34.5 SEC Microbiology Date/Time Source Procedure Growth Status 07/04/24 23:39 Toe Letf (Big) Gram Stain - Final Resulted 07/04/24 23:39 Wound Culture - Preliminary Staphylococcus aureus Resulted Bilateral Lower Extremity Arterial Duplex Clinical History: PAD Comparison: None Technique: Duplex Doppler evaluation including color Doppler and spectral/pulsed waveform analysis of the lower extremity arteries was performed. Findings: RIGHT: Peak systolic velocities are as follows: RESIDENT CARE TECHNICIAN 130 cm/s Deep femoral 73 cm/s SFA proximal 115 cm/s SFA mid-portion 112 cm/s SFA distal 117 cm/s Popliteal 92 cm/s Posterior tibial 104 cm/s Dorsalis pedis 79 cm/s The waveforms are triphasic with diastolic flow. LEFT: Peak systolic velocities are as follows: RESIDENT CARE TECHNICIAN 75 cm/s Deep femoral 77 cm/s SFA proximal 117 cm/s SFA mid-portion 102 cm/s SFA distal 128 cm/s Popliteal 58 cm/s Posterior tibial 80 cm/s Dorsalis pedis 75 cm/s Monophasic waveforms in the posterior tibial and dorsalis pedis arteries suggestive of at least mild grade stenoses. The remaining waveforms are triphasic. IMPRESSION: 1. Right lower extremity: No hemodynamically significant stenosis based on peak systolic velocity criteria. 2. Left lower extremity: Monophasic waveforms in the posterior tibial and dorsal is pedis artery suggesting at least mild grade stenoses. Assessment Left 1st toe cellulitis. Resolving 1st toe ingrown toenail infection. Continue with oral antibiotics. Patient will need to have follow up routinely with podiatry as an outpatient. No surgical intervention at this period time Plan/Recommendation Left 1st toe cellulitis. Resolving 1st toe ingrown toenail infection. Continue with oral antibiotics. Patient will need to have follow up routinely with podiatry as an outpatient. No surgical intervention at this period time Plan discussed with: Patient HOMAR HAUSER Jr., MD Jul 08, 2024 11:16
[2024-07-08] MEDS ORDERED: BACDST PO (12:20)
[2024-07-08] MEDS ORDERED: ASPI-717 PO (12:24)
[2024-07-08] MEDS ORDERED: ASPI81TA28 PO (12:25)
--- NOTE | 2024-07-08 12:25 | DVHDS2 ---
Discharge Summary Date of Admission Jul 04, 2024 at 20:15 Date of Discharge: Jul 08, 2024 Labs/Diagnostic Data: Laboratory Results Test 07/08/24 12:03 07/08/24 05:35 07/07/24 04:34 07/06/24 07:08 White Blood Count 6.1 10^3/uL (4.4-10.8) Red Blood Count 3.68 10^6/uL (4.5-5.90) Hemoglobin 10.4 g/dL (13.5-17.5) Hematocrit 31.8 % (41.0-53.0) Mean Corpuscular Volume 86.4 fL (80.0-100.0) Mean Corpuscular Hemoglobin 28.3 pg (28.0-32.0) Mean Corpuscular Hemoglobin Concent 32.7 g/dL (32.0-36.0) Red Cell Distribution Width 17.0 % (11.8-14.3) Platelet Count 223 10^3/uL (140-450) Mean Platelet Volume 7.4 fL (6.9-10.8) Neutrophils (%) (Auto) 59.2 % (37.0-80.0) Lymphocytes (%) (Auto) 24.2 % (10.0-50.0) Monocytes (%) (Auto) 9.4 % (0.0-12.0) Eosinophils (%) (Auto) 6.0 % (0.0-7.0) Basophils (%) (Auto) 1.2 % (0.0-2.0) Neutrophils # (Auto) 3.6 10 ^3/uL (1.6-8.6) Lymphocytes # (Auto) 1.5 10 ^3/uL (0.4-5.4) Monocytes # (Auto) 0.6 10 ^3/uL (0-1.3) Eosinophils # (Auto) 0.4 10 ^3/uL (0-0.8) Basophils # (Auto) 0.1 10 ^3/uL (0-0.2) Nucleated Red Blood Cells 0.1 % Creatinine 0.99 mg/dL (0.700-1.30) Glomerular Filtration Rate Calc 77 mL/min (>90) Sodium Level 143 mmol/L (136-145) Potassium Level 3.7 mmol/L (3.5-5.1) Chloride Level 110 mmol/L (98-107) Carbon Dioxide Level 26 mmol/L (20-31) Anion Gap 7 (5-15) Blood Urea Nitrogen 18 mg/dL (9-23) BUN/Creatinine Ratio 17.5 (10.0-20.0) Serum Glucose 96 mg/dL (74-106) Calcium Level 8.9 mg/dL (8.7-10.4) Random Vancomycin Level 9.1 ug/mL (5-10) Test 07/06/24 06:50 07/05/24 07:02 Urine Color Light-yellow (Yellow) Urine Clarity Clear (Clear) Urine pH 7.0 (5.0-9.0) Urine Specific [place] 1.009 (1.001-1.035) Urine Protein Negative (Negative) Urine Ketones Trace (Negative) Urine Blood 1+ /uL (Negative) Urine Nitrite Negative (Negative) Urine Bilirubin Negative (Negative) Urine Urobilinogen Normal mg/dL (Negative) Urine Leukocyte Esterase Negative /uL (Negative) Urine RBC 1 /hpf (0 - 3) Urine WBC <1 /hpf (0 - 3) Urine Squamous Epithelial Cells Few /hpf (<5) Urine Bacteria None seen /hpf (None Seen) Urine Glucose Normal mg/dL (Normal) Prothrombin Time 12.8 sec (9.3-11.8) Prothrombin Time INR 1.23 (0.9-1.15) Activated Partial Thromboplast Time 37.4 SEC (24.5-34.5) Other Laboratory Tests 07/08/24 05:35 07/07/24 04:34 Brief Hx & Hospital Course: 79 yo male pt with past medical history of hyperlipidemia, Parkinson's, enlarge prostate w cancer c/o ingrown toe nail on left great toe for the past three days. States that it has become infected and is causing left leg pain. There are no complaints of fevers, chills, shortness of breath, chest pain, palpitations. He is admitted and evaluated by Infectious Disease and vascular surgeon. Patient did not require any surgical wound debridement. Patient empirically treated with the IV antibiotics and is toe cellulitis has significantly improved. Arterial Dopplers showed monophasic waveforms but no significant occlusion. Patient is advised to take baby aspirin. Given overall patient's clinical symptoms improved and he is feeling better and having had necessary workup and evaluations it is felt he could be safely discharged home with outpatient follow up with PCP and to finish antibiotics as prescribed. I talked with the patient and his regarding his hospital diagnosis, treatment he received, discharge medications, discharge instructions and they agree with the discharge follow-up plan of care. Consults/Reason for consult Reason for Consultation Left 1st toe infection History of Present Illness 79 yo male pt with past medical history of hyperlipidemia, Parkinson's, enlarge prostate w cancer c/o ingrown toe nail on left great toe for the past three days. States that it has become infected and is causing left leg pain. There are no complaints of fevers, chills, shortness of breath, chest pain, palpitations. Patient was states since being hospitalized in on IV antibiotics pain has diminished and swelling has improved. No recent fevers. No history of claudication or rest pain. Patient was a nonsmoker. Past Medical History Hyperlipidemia prostate cancer Assessment Left 1st toe cellulitis. Resolving 1st toe ingrown toenail infection. Continue with oral antibiotics. Patient will need to have follow up routinely with podiatry as an outpatient. No surgical intervention at this period time Plan/Recommendation Left 1st toe cellulitis. Resolving 1st toe ingrown toenail infection. Continue with oral antibiotics. Patient will need to have follow up routinely with podiatry as an outpatient. No surgical intervention at this period time Plan discussed with: Patient HOMAR HAUSER Jr., MD Jul 08, 2024 11:16 Condition at Discharge: Stable Final Diagnosis/Problems List left big toe cellulitis Discharge Disposition: Home Discharge Instruct/Medications Diet: Consistent carbohydrate, Cardiac 2g Na,low cholest Activity: No Restrictions, As Tolerated Follow Up/Referral: Program Associate next week for ingrown toe nails and cellulitis Medications: as prescribed and home medications New Medications: Aspirin (Aspirin Ec) 81 Mg Tab 81 MG PO DAILY, #60 TAB Sulfamethoxazole W/Trimethopri (Bactrim Ds Tablet) 1 Tab Tb 1 TAB PO BID, #20 TAB Continued Medications: Atorvastatin Calcium (Atorvastatin Calcium) 20 Mg Tab 1 TAB PO DAILY, #30 TAB 5 Refills Bupropion Hcl (Bupropion Hcl Er) 150 Mg Tab 1 TAB PO BID, #60 TAB 5 Refills Carbidopa-Levodopa (Carbidopa/Levodopa Odt 25-100 mg) 1 Tab Tab 1 TAB PO, TAB Leflunomide (Arava) 20 Mg Tab 1 TAB PO DAILY, #30 TAB Tamsulosin HCl (Tamsulosin Hydrochloride) 0.4 Mg Cap 0.4 MG PO, CAP Discharge Statement: "Patient was advised to return to the ER or call 911 if any headaches, dizziness, shortness of breath, chest pain, abdominal pain, bleeding, fevers, or worsening of medical condition. Patient was counseled about treatment plan, medications, possible side effects, patientverbalized understanding. All questions were answered to the best of my ability. This discharge took greater then 30 minutes in planning, reviewing documentation, counseling the patient, and discussing with other team members." ASSESSMENT ASSESSMENT Assessment left big toe cellulitis MATTIE SPRINGER MD Jul 08, 2024 12:25
[2024-07-08 12:52] VITALS: BP 108/63; PULSE 72; RESP 17; TEMP 97.8; O2SAT 91
--- NOTE | 2024-07-08 12:53 | DVHPN2 ---
Progress Note - Dictate Date Seen: Jul 08, 2024 Medical Necessity Reason Pt with a Central, PICC or Fol: No Subjective Patient was seen and evaluated at bedside. He is awake, alert and oriented. Vitals reviewed. 07/05, Chest x-ray revealed: 1. Prominence of the pulmonary vasculature and mild bilateral perihilar interstitial opacities, may be seen with a degree of pulmonary vascular congestion in the appropriate clinical setting. Correlate with clinical findings. 2. No focal consolidation visualized. 07/06 left foot x-ray of left foot : no evidence of fracture or dislocation Preliminary wound cultures growing staph aureus organisms. vital signs Vital Sign Date Time Temp Pulse Resp B/P (MAP) Pulse Ox O2 Delivery O2 Flow Rate FiO2 07/08/24 09:00 97.8 87 20 123/69 (87) 92 97.8 07/08/24 08:00 Room Air* 0 21 Total Intake and Output 07/07/24 07/07/24 07/08/24 15:00 23:00 07:00 Intake Total 240 ml 250 ml 700 ml Balance 240 ml 250 ml 700 ml medications Current Medications Medications Dose Ordered Sig/Ann-Marie Route Start Time Stop Time Status Last Admin Dose Admin Docusate Sodium 100 mg BIDPRN PRN PO 07/04/24 20:45 Acetaminophen 650 mg Q6HP PRN PO 07/04/24 20:45 Acetaminophen/ Hydrocodone Bitart 1 tab Q6HPRN PRN PO 07/04/24 20:45 07/05/24 16:49 1 TAB Ondansetron HCl 4 mg Q4HP PRN IV 07/04/24 20:45 Morphine Sulfate 2 mg Q4HPRN PRN IV 07/04/24 20:45 07/05/24 22:08 2 MG Enoxaparin Sodium 40 mg DAILY SC 07/05/24 10:00 07/08/24 08:44 40 MG Nitroglycerin 0.4 mg Q5MINP PRN SL 07/04/24 20:45 Morphine Sulfate 2 mg Q30M PRN IV 07/04/24 20:45 Vancomycin HCl 0 ml @ 0 mls/hr UD IV 07/04/24 20:45 Atorvastatin Calcium 20 mg HS PO 07/04/24 22:00 07/07/24 21:24 20 MG Tamsulosin HCl 0.4 mg QPM PO 07/05/24 18:00 07/07/24 17:16 0.4 MG Carbidopa/Levodopa 1 tab QID PO 07/04/24 22:00 07/08/24 11:34 1 TAB Cefazolin Sodium 50 ml @ 100 mls/hr Q8HR IV 07/04/24 23:00 07/08/24 05:12 100 MLS/HR Vancomycin HCl 500 mg/Dextrose 100 ml @ 200 mls/hr BID@0100,1300 IV 07/07/24 13:00 07/08/24 00:37 200 MLS/HR objective General Appearance: Alert, Oriented X3, Cooperative, mild distress HEENT: Atraumatic, PERRLA, EOMI Respiratory: Clear to auscultation, Normal air movement Cardiovascular: Regular rate, Normal S1, Normal S2 Abdominal: Normal bowel sounds, Soft, No tenderness Extremities: Normal pulses, Other (Left great toe erythema with open skin. generalized eryhtema surrounding other toes.) Neuro: Normal speech, Strength at 5/5 X4 ext Psych/Mental Status: Mental status NL, Mood NL laboratory and microbiology Laboratory Tests 07/08/24 05:35 07/07/24 04:34 Test 07/07/24 04:34 Range/Units Serum Glucose 96 74-106 mg/dL Assessment/Plan Patient is a 79-year-old male presents to the hospital with: Left great toe wound with cellulitis ingrown toe nail Generalized cellulitis to left foot staphylococcus aureus infection Recommendations: cont Vancomycin/ Ceftriaxone podiatry consult: no surgical intervention, taper to oral based on sensitivity; kelfex or augmentin for 5-7 days follow up with podiatry as outpt Thank you for consult. Dietary Evaluation Review Comments: 1. Continue current diet Expected Outcomes/Goals: 1. Pt will consume >75% of estimated needs within 3-5 days Plan discussed with: Other HELGA OSBORNE MD Jul 08, 2024 12:53
--- NOTE | 2024-07-21 14:30 | ECG ---
[facility] Test Date: 2024-07-05 Test Time: 16:56:27 Pat Name: OLU SANTANA Department: Room: 0274T A Gender: M Plastics Engineer: kiah : 1945 Requested By: MATTIE SPRINGER Order Number: [id number] Reading MD: Tony Gan Measurements Intervals [place] Rate: 94 P: 31 OK: 144 QRS: 4 QRSD: 78 T: 28 QT: 334 QTc: 418 Interpretive Statements Sinus rhythm Borderline low voltage, extremity leads Electronically Signed On 07-22-2024 9:07:36 PST by Tony Gan Please click the below link to view image of tracing.
== END 2024-07-08 14:18 | disposition home or self-care (01) | DRG 603 ==
LOC: TELE-WESTW 20:15
PROVIDERS: ADMIT Hospitalist; ATTEND Hospitalist
DX: L03.032 Cellulitis of left toe (principal); N40.0 Benign prostatic hyperplasia without lower urinary tract symptoms; I10 Essential (primary) hypertension; L60.0 Ingrowing nail; G20.A1 Parkinson's disease without dyskinesia, without mention of fluctuations; E78.5 Hyperlipidemia, unspecified; S91.102A Unspecified open wound of left great toe without damage to nail, initial encounter; Z79.899 Other long term (current) drug therapy; X58.XXXA Exposure to other specified factors, initial encounter; Y93.89 Activity, other specified; Y92.89 Other specified places as the place of occurrence of the external cause; Y99.8 Other external cause status
CPT/HCPCS: 36415; 71045; 73620; 80048; 80202; 81001; 82565; 85025; 85610; 85730; 87077; 87186; 87205; 93005; 93925; G0378; J7060

== ENCOUNTER 2025-02-18 08:33 | Emergency (ER) | payer OTHER, MEDICAID ==
[~2025-02-18] VITALS: Ht 170.2 cm; Wt 70.3 kg
[~2025-02-18 08:33] MED LIST: ASPI81TA28 PO; ATOR20TA50 PO; AUG875T PO; BUPR-133 PO; CARB25TA79 PO; LEFL20TA PO; TAMS1CAP25 PO
--- NOTE | 2025-02-18 09:14 | ED.PDOC ---
History of Present Illness HPI Comments 79 year old male with a past medical history of HTN presents to the ED with a chief complaint of PICC line removal onset today (02/18/25). Patient states he had PICC line placed about 8 weeks ago due to osteomyelitis of LT great toe , began antibiotics course for 6 weeks, finished antibiotics about 2 weeks ago. He came today to ED for PICC line removal. No other symptoms or modifying factors present at this time. Completed course of ABx 2 wks. ago. Denies fever chills nausea vomiting diarrhea Denies numbness/tingling Denies chest pain, shortness of breath,dizziness Time Seen by MD: 09:00 Primary Care Provider: PATRIA GOLDMAN Reviewed Notes: Nurses Notes, Medications, Allergies Allergies: Coded Allergies: NO KNOWN ALLERGIES (Unverified , 07/04/24) Home Meds Active Scripts Amoxicillin & Pot Clavulanate (AUGMENTIN TABLET) 875 Mg Tb, 875 MG PO BID for 7 Days, #14 TAB Prov:ZACHARY WANG MD 10/09/24 Aspirin (Aspirin Ec) 81 Mg Tab, 81 MG PO DAILY, #60 TAB Prov:MATTIE SPRINGER MD 07/08/24 Reported Medications Carbidopa-Levodopa (Carbidopa/Levodopa Odt 25-100 mg) 1 Tab Tab, 1 TAB PO, TAB 07/04/24 Tamsulosin HCl (Tamsulosin Hydrochloride) 0.4 Mg Cap, 0.4 MG PO, CAP 07/04/24 Bupropion Hcl (Bupropion Hcl Er) 150 Mg Tab, 1 TAB PO BID, #60 TAB 5 Refills 07/04/24 Leflunomide (Arava) 20 Mg Tab, 1 TAB PO DAILY, #30 TAB 07/04/24 Atorvastatin Calcium (ATORVASTATIN CALCIUM) 20 Mg Tab, 1 TAB PO DAILY, #30 TAB 5 Refills 07/04/24 Information Source: Patient Mode of Arrival: Ambulatory Severity: Moderate Timing: Hours Duration: Since onset Prehospital treatment: None Past Medical History PAST MEDICAL HISTORY: HTN, Denies Surgical History: Denies all surgeries Family History Family History: Reviewed,noncontributory to illness Social History Smoker: Non-Smoker Alcohol: Denies ETOH Use Drugs: Denies Drug Use Lives In: Home All Other Systems: Reviewed and Negative (as per HPI) Physical Exam General Appearance: Normal HEENT: Normal ENT Inspection, Pharynx Normal, TMs Normal Neck: Full Range of Motion, Non-Tender, Normal, Normal Inspection Respiratory: Chest Non-Tender, Lungs Clear, No Accessory Muscle Use, No Respiratory Distress, Normal Breath Sounds Cardiovascular: No Edema, No JVD, No Murmur, No Gallop, Normal Peripheral Pulses, Regular Rate/Rhythm Breast Exam: Deferred Gastrointestinal: No Organomegaly, Non Tender, No Pulsatile Mass, Normal Bowel Sounds, Soft Genitalia: Deferred Pelvic: Deferred Rectal: Deferred Extremities: No calf tenderness, Normal capillary refill, No pedal edema Musculoskeletal : Location: Left Extremity Location: Foot (with no STS, full ROM, no TTP, no erythema, cap refill < 3 seconds, DP pulses 1+, visual ), Great Toe (onychomycosis ) Apperance: Normal Neurologic: Alert, saw feeder II-XII nml as Tested, No Motor Deficits, Normal Affect, Normal Mood, No Sensory Deficits Cerebellar Function: Normal Reflexes: Normal Skin: Dry, Normal Color, Warm Lymphatic: No Adenopathy Was a procedure done? Was a procedure done?: No Differential Dx Considerations may include: PICC line removal X-Ray, Labs, Meds, VS Vital Signs Date Time Temp Pulse Resp B/P (MAP) Pulse Ox O2 Delivery O2 Flow Rate FiO2 02/18/25 09:59 88 18 95 Room Air 02/18/25 09:59 98.1 95 18 106/53 (70) 95 98.1 02/18/25 08:40 98.9 96 19 141/77 (98) 94 98.9 Lab Test 02/18/25 09:07 Range/Units White Blood Count 9.5 4.4-10.8 10^3/uL Red Blood Count 4.14 L 4.5-5.90 10^6/uL Hemoglobin 11.7 L 13.5-17.5 g/dL Hematocrit 35.2 L 41.0-53.0 % Mean Corpuscular Volume 84.9 80.0-100.0 fL Mean Corpuscular Hemoglobin 28.2 28.0-32.0 pg Mean Corpuscular Hemoglobin Concent 33.2 32.0-36.0 g/dL Red Cell Distribution Width 17.9 H 11.8-14.3 % Platelet Count 294 140-450 10^3/uL Mean Platelet Volume 6.4 L 6.9-10.8 fL Neutrophils (%) (Auto) 66.8 37.0-80.0 % Lymphocytes (%) (Auto) 21.6 10.0-50.0 % Monocytes (%) (Auto) 9.6 0.0-12.0 % Eosinophils (%) (Auto) 1.0 0.0-7.0 % Basophils (%) (Auto) 1.0 0.0-2.0 % Neutrophils # (Auto) 6.3 1.6-8.6 10 ^3/uL Lymphocytes # (Auto) 2.0 0.4-5.4 10 ^3/uL Monocytes # (Auto) 0.9 0-1.3 10 ^3/uL Eosinophils # (Auto) 0.1 0-0.8 10 ^3/uL Basophils # (Auto) 0.1 0-0.2 10 ^3/uL Nucleated Red Blood Cells 0.1 % Sodium Level 143 136-145 mmol/L Potassium Level 3.6 3.5-5.1 mmol/L Chloride Level 108 H 98-107 mmol/L Carbon Dioxide Level 27 20-31 mmol/L Anion Gap 8 5-15 Blood Urea Nitrogen 28 H 9-23 mg/dL Creatinine 1.09 0.700-1.30 mg/dL Glomerular Filtration Rate Calc 68 >90 mL/min BUN/Creatinine Ratio 25.7 H 10.0-20.0 Serum Glucose 97 74-106 mg/dL Calcium Level 9.6 8.7-10.4 mg/dL X-Ray, Labs, Meds, VS Comment 79 year old male with a past medical history of HTN presents to the ED with a chief complaint of PICC line removal onset today (02/18/25). Patient arrives alert and oriented, ABC's intact, afebrile, vital signs stable, saturating well in room air labs were ordered. CBC was ordered to exclude anemia, blood loss, or infection. BMP was ordered to exclude electrolyte abnormalities, renal failure, dehydration, hyperglycemia PICC LINE removed by RN. Observed for extensive amount of time. Patient is stable for discharge at this time. External notes reviewed. Test results and diagnostic imaging interpreted. All diagnostic findings, discharge care, education and instructions provided Follow-up with PCP in 2 to 3 days Patient verbalized understanding and agreed to treatment plan Vital signs stable, afebrile, no acute distress noted Patient ambulatory with strong steady gait Advised to return precautions for any new or worsening symptoms, return to ER immediately for re-evaluation Patient is aware that the purpose of this visit was for an acute medical emerge ncy requiring emergent stabilization. Chronic conditions, including malignancies have not been ruled out. Patient is instructed to follow up with PCP as directed and discharge instructions for continued care and workup. If unable to arrange follow-up, patient is to return to the emergency department for reassessment. Patient (parent or legal guardian if applicable) was given verbal and written discharge instructions and acknowledges understanding. Additional MDM Review of External, Non-ED records: External records reviewed. Discussion with independent historian (EMS, family) history obtained from the patient/parents (if applicable) at bedside Chronic conditions affecting care: HTN Social determinants of health affecting care: None Consideration of admission (observation or admission): I considered escalation of care to admission for this patient, however given the reassuring workup, the patient is safe for outpatient management. Time of 1ST Reevaluation: 09:30 Reevaluation 1ST: Improved Patient Education/Counseling: Diagnosis, Treatment Family Education/Counseling: No Family Present SEPSIS Sepsis Screen Physician Orders D/C Picc Line (02/18/25 09:52) Vital Signs Date Time Temp Pulse Resp B/P (MAP) Pulse Ox O2 Delivery O2 Flow Rate FiO2 02/18/25 09:59 88 18 95 Room Air 02/18/25 09:59 98.1 95 18 106/53 (70) 95 98.1 02/18/25 08:40 98.9 96 19 141/77 (98) 94 98.9 Laboratory Tests Test 02/18/25 09:07 White Blood Count 9.5 10^3/uL (4.4-10.8) Departure 1 Departure Time of Disposition: 09:53 Impression: Primary Impression: PIC line (peripherally inserted central catheter) removal Disposition: 01 HOME / SELF CARE / HOMELESS Condition: Stable Discharged With: Self Critical Care Note Critical Care Time?: No Stability Stability form required: No Heart Score Heart Score: Heart Score Response (Comments) Value History N/A 0 EKG N/A 0 Age N/A 0 Risk Factors N/A 0 Troponin N/A 0 Total 0 I personally scribed for LAXMI PORTER NP ([email or web address]) on 02/18/25 at 09:14. Electronically submitted by Marisa Barbosa ([email or web address]). I personally scribed for LAXMI PORTER HOSPICE ENTRANCE ATTENDANT ([email or web address]) on 02/18/25 at 09:32. Electronically submitted by Marisa Barbosa ([email or web address]). I personally scribed for LAXMI PORTER NP ([email or web address]) on 02/18/25 at 09:33. Electronically submitted by Marisa Barbosa ([email or web address]). I personally scribed for LAXMI PORTER HOSPICE ENTRANCE ATTENDANT ([email or web address]) on 02/18/25 at 09:33. Electronically submitted by Marisa Barbosa ([email or web address]). LAXMI PORTER NP Feb 18, 2025 09:14
[2025-02-18 09:17] LABS: Hematocrit 35.2 % (41.0-53.0); Hemoglobin 11.7 g/dL (13.5-17.5); Mean Corpuscular Hemoglobin 28.2 pg (28.0-32.0); Mean Corpuscular Volume 84.9 fL (80.0-100.0); Nucleated Red Blood Cells % 0.1 %
[2025-02-18 09:29] LABS: Potassium 3.6 mmol/L (3.5-5.1); Sodium 143 mmol/L (136-145)
[2025-02-18 09:30] LABS: Anion Gap 8 (5-15); Carbon Dioxide 27 mmol/L (20-31)
[2025-02-18 09:31] LABS: Calcium 9.6 mg/dL (8.7-10.4)
[2025-02-18 09:35] LABS: Chloride 108 mmol/L (98-107); Glucose 97 mg/dL (74-106)
[2025-02-18 09:36] LABS: BUN/Creatinine Ratio 25.7 (10.0-20.0); Blood Urea Nitrogen 28 mg/dL (9-23)
[2025-02-18 09:59] VITALS: BP 106/53; PULSE 88; RESP 18; TEMP 98.1; O2SAT 95
== END 2025-02-18 10:17 | disposition home or self-care (01) ==
LOC: ER 08:33
DX: Z45.2 Encounter for adjustment and management of vascular access device (principal); I10 Essential (primary) hypertension; Z79.82 Long term (current) use of aspirin; Z79.899 Other long term (current) drug therapy
CPT/HCPCS: 36415; 80048; 85025

== ENCOUNTER 2025-08-04 15:35 | Inpatient (IN) | payer OTHER, MEDICAID ==
[~2025-08-04] VITALS: Ht 170.2 cm; Wt 77.1 kg
--- NOTE | 2025-08-04 15:56 | ED.PDOC ---
General HPI Comments This is a 80 year old male presenting to the ED with chief complaint of hematuria. Patient reports that he has been experiencing hematuria with associated penile pain and decreased urine output since earlier this morning. Patient relays that he visited his PCP today and was advised to come to the ED for further evaluation. Patient denies any N/V/D, flank pain, abdominal pain, or fever. Chief Complaint: Urinary Time Seen by MD: 15:54 Primary Care Provider: PATRIA GOLDMAN Reviewed notes: Nurses Notes, Medications, Allergies Allergies: Coded Allergies: NO KNOWN ALLERGIES (Unverified , 07/04/24) Home Meds Active Scripts Amoxicillin & Pot Clavulanate (AUGMENTIN TABLET) 875 Mg Tb, 875 MG PO BID for 7 Days, #14 TAB Prov:ZACHARY WANG MD 10/09/24 Aspirin (Aspirin Ec) 81 Mg Tab, 81 MG PO DAILY, #60 TAB Prov:MATTIE SPRINGER MD 07/08/24 Reported Medications Carbidopa-Levodopa (Carbidopa/Levodopa Odt 25-100 mg) 1 Tab Tab, 1 TAB PO, TAB 07/04/24 Tamsulosin HCl (Tamsulosin Hydrochloride) 0.4 Mg Cap, 0.4 MG PO, CAP 07/04/24 Bupropion Hcl (Bupropion Hcl Er) 150 Mg Tab, 1 TAB PO BID, #60 TAB 5 Refills 07/04/24 Leflunomide (Arava) 20 Mg Tab, 1 TAB PO DAILY, #30 TAB 07/04/24 Atorvastatin Calcium (ATORVASTATIN CALCIUM) 20 Mg Tab, 1 TAB PO DAILY, #30 TAB 5 Refills 07/04/24 Information Source: Patient Mode of Arrival: Ambulatory Severity: Moderate Timing: Hours Duration: Since onset Prehospital treatment: None Onset: Spontaneous Symptoms: Hematuria associated signs and symptoms: Hematuria Past Medical History PAST MEDICAL HISTORY: Cancer (Prostate) Surgical History: Appendectomy Surgical History (Other): Eye surgery Family History Family History: Reviewed,noncontributory to illness Social History Smoker: Non-Smoker Alcohol: Denies ETOH Use Drugs: Denies Drug Use Lives In: Home Constitutional: denies: chills, diaphoresis, fatigue, fever, malaise, sweats, weakness, others EENTM: denies: blurred vision, double vision, ear bleeding, ear discharge, ear drainage, ear pain, ear ringing, eye pain, eye redness, hearing loss, mouth pain, mouth swelling, nasal discharge, nose bleeding, nose congestion, nose pain, photophobia, tearing, throat pain, throat swelling, voice changes, others Respiratory: denies: cough, hemoptysis, orthopnea, SOB at rest, shortness of breath, SOB with excertion, stridor, wheezing, others Cardiovascular: denies: chest pain, dizzy spells, diaphoresis, Dyspnea on exertion, edema, irregular heart beat, left arm pain, lightheadedness, palpitations, PND, syncope, others Gastrointestinal: denies: abdomen distended, abdominal pain, blood streaked bowels, constipated, diarrhea, dysphagia, difficulty swallowing, hematemesis, melena, nausea, poor appetite, poor fluid intake, rectal bleeding, rectal pain, vomiting, others Genitourinary: reports: hematuria, pain, others (Decreased urine output); denies: burning, dysuria, flank pain, frequency, incontinence, penile discharge, penile sore, testicle pain, testicle swelling, urgency Neurological: denies: dizziness, fainting, headache, left sided numbness, left sided weakness, numbness, paresthesia, pre-existing deficit, right sided numbness, right sided weakness, seizure, speech problems, tingling, tremors, weakness, others Musculoskeletal: denies: back pain, gout, joint pain, joint swelling, muscle pain, muscle stiffness, neck pain, others Integumetry: denies: bruises, change in color, change in hair/nails, dryness, laceration, lesions, lumps, rash, wounds, others Allergic/Immunocompromised: denies: Difficulty Healing, Frequent Infections, Hives, Itching, others Hematologic/Lymphatic: denies: anemia, blood clots, easy bleeding, easy bruising, swollen glands, others Endocrine: denies: excessive hunger, excessive sweating, excessive thirst, excessive urination, flushing, intolerance to cold, intolerance to heat, unexplained weight gain, unexplained weight loss, others Psychiatric: denies: anxiety, bipolar disorder, depression, hopeless, panic disorder, schizophrenia, sleepless, suicidal, others All Other Systems: Reviewed and Negative Physical Exam General Appearance: No Apparent Distress HEENT: Normal ENT Inspection, Pharynx Normal, TMs Normal Neck: Full Range of Motion, Non-Tender, Normal, Normal Inspection Respiratory: Chest Non-Tender, Lungs Clear, No Accessory Muscle Use, No Respiratory Distress, Normal Breath Sounds Cardiovascular: No Edema, No JVD, No Murmur, No Gallop, Normal Peripheral Pulses, Regular Rate/Rhythm Breast Exam: Deferred Gastrointestinal: No Organomegaly, Non Tender, No Pulsatile Mass, Normal Bowel Sounds, Soft Genitalia: Deferred Pelvic: Deferred Rectal: Deferred Extremities: No calf tenderness, Normal capillary refill, Normal inspection, Normal range of motion, Non-tender, No pedal edema Musculoskeletal : Apperance: Normal Neurologic: Alert, belt polisher II-XII nml as Tested, No Motor Deficits, Normal Affect, Normal Mood, No Sensory Deficits Cerebellar Function: Normal Reflexes: Normal Skin: Dry, Normal Color, Warm Lymphatic: No Adenopathy Was a procedure done? Was a procedure done?: No Differential Diagnosis Kidney stone (Female): N/A Urinary Problem (Male): Urethritis, Urinary Retention, Urolithiasis, UTI X-Ray, Labs, Meds, VS Vital Signs Date Time Temp Pulse Resp B/P (MAP) Pulse Ox O2 Delivery O2 Flow Rate FiO2 08/04/25 15:52 97.9 80 14 147/81 (103) 95 97.9 08/04/25 15:38 97.9 80 12 147/81 95 97.9 Lab Test 08/04/25 16:27 08/04/25 16:15 Range/Units Urine Color Light-red Yellow Urine Clarity Ex.turbid Clear Urine pH 5.5 5.0-9.0 Urine Specific [place] 1.019 1.001-1.035 Urine Protein 1+ H Negative Urine Ketones Trace Negative Urine Blood 3+ H Negative /uL Urine Nitrite Negative Negative Urine Bilirubin Negative Negative Urine Urobilinogen Normal Negative mg/dL Urine Leukocyte Esterase 1+ Negative /uL Urine RBC 9354 0 - 3 /hpf Urine Microscopic WBC 2 0-3 /HPF Urine Squamous Epithelial Cells None seen <5 /hpf Urine Bacteria None seen None Seen /hpf Urine Glucose Normal Normal mg/dL White Blood Count 6.7 4.4-10.8 10^3/uL Red Blood Count 4.04 L 4.5-5.90 10^6/uL Hemoglobin 11.4 L 13.5-17.5 g/dL Hematocrit 35.5 L 41.0-53.0 % Mean Corpuscular Volume 87.8 80.0-100.0 fL Mean Corpuscular Hemoglobin 28.3 28.0-32.0 pg Mean Corpuscular Hemoglobin Concent 32.3 32.0-36.0 g/dL Red Cell Distribution Width 17.2 H 11.8-14.3 % Platelet Count 236 140-450 10^3/uL Mean Platelet Volume 6.8 L 6.9-10.8 fL Neutrophils (%) (Auto) 59.2 37.0-80.0 % Lymphocytes (%) (Auto) 26.8 10.0-50.0 % Monocytes (%) (Auto) 10.0 0.0-12.0 % Eosinophils (%) (Auto) 2.8 0.0-7.0 % Basophils (%) (Auto) 1.2 0.0-2.0 % Neutrophils # (Auto) 4.0 1.6-8.6 10 ^3/uL Lymphocytes # (Auto) 1.8 0.4-5.4 10 ^3/uL Monocytes # (Auto) 0.7 0-1.3 10 ^3/uL Eosinophils # (Auto) 0.2 0-0.8 10 ^3/uL Basophils # (Auto) 0.1 0-0.2 10 ^3/uL Nucleated Red Blood Cells 0.0 % Sodium Level 142 136-145 mmol/L Potassium Level 4.9 3.5-5.1 mmol/L Chloride Level 108 H 98-107 mmol/L Carbon Dioxide Level 25 20-31 mmol/L Anion Gap 9 5-15 Blood Urea Nitrogen 24 H 9-23 mg/dL Creatinine 1.40 H 0.700-1.30 mg/dL Glomerular Filtration Rate Calc 50 >90 mL/min BUN/Creatinine Ratio 17.1 10.0-20.0 Serum Glucose 99 74-106 mg/dL Calcium Level 8.9 8.7-10.4 mg/dL CT Abd/Pel indicates: 1. No hydronephrosis or nephroureterolithiasis. 2. Prominent fusiform infrarenal abdominal aortic aneurysm measuring up to 5.4 cm. 3. Fusiform bilateral common iliac artery aneurysms measuring up to 2 cm. Renal US indicates: Unremarkable examination. The urine test is positive for hematuria The chemistry panel shows a BUN of 24 and a creatinine of 1.40 The patient is being admitted at this time Images Reviewed?: Images reviewed and evaluated by me Time of 1ST Reevaluation: 20:46 Reevaluation 1ST: Unchanged Patient Education/Counseling: Diagnosis, Treatment, Prognosis Family Education/Counseling: No Family Present SEPSIS Sepsis Screen Date sepsis recognized/suspect: Aug 04, 2025 Time Sepsis recognized/suspect: 1538 Recent Procedure: No On Antibiotic Therapy: No Respiratory Rate >20: No Heart Rate >90: No Temp<36 C (96.8 F) or >38.3 C: No SBP <90 or MAP <65 mmHG: No New Acute Mental Status Change: No Is the patient on CPAP, BIPAP,: No Physician Orders Atorvastatin (Lipitor) (08/05/25 22:00) Tamsulosin Hydrochloride (Flomax) (08/04/25 18:00) (Nf) Bupropion Hcl (Bupropion Hcl Er) (08/04/25 22:00) (Nf) Leflunomide (Arava) (08/05/25 10:00) Carbidopa W Levodopa 25/100mg (Sinemet 2 (08/04/25 22:00) Vital Signs Date Time Temp Pulse Resp B/P (MAP) Pulse Ox O2 Delivery O2 Flow Rate FiO2 08/04/25 15:52 97.9 80 14 147/81 (103) 95 97.9 08/04/25 15:38 97.9 80 12 147/81 95 97.9 Laboratory Tests Test 08/04/25 16:15 White Blood Count 6.7 10^3/uL (4.4-10.8) Departure 1 Departure Time of Disposition: 20:46 Impression: Primary Impression: Generalized weakness Additional Impression: Hematuria Qualified Codes: R31.9 - Hematuria, unspecified Disposition: 09 ADMITTED INPATIENT Admit to: Med Surg Condition: Fair Critical Care Note Critical Care Time?: No Stability Stability form required: Yes Unstable for transfer: ED Physician Assesment (Clinical assesment) Heart Score Heart Score: Heart Score Response (Comments) Value History N/A 0 EKG N/A 0 Age N/A 0 Risk Factors N/A 0 Troponin N/A 0 Total 0 I personally scribed for YANI CAMPOVERDE MD ([email or web address]) on 08/04/25 at 15:56. Electronically submitted by Joel Herring ([email or web address]). I personally scribed for YANI CAMPOVERDE MD ([email or web address]) on 08/04/25 at 20:29. Electronically submitted by Joel Herring ([email or web address]). YANI CAMPOVERDE MD Aug 04, 2025 15:56
[2025-08-04 16:30] LABS: Hematocrit 35.5 % (41.0-53.0); Hemoglobin 11.4 g/dL (13.5-17.5); Mean Corpuscular Hemoglobin 28.3 pg (28.0-32.0); Mean Corpuscular Volume 87.8 fL (80.0-100.0); Nucleated Red Blood Cells % 0.0 %
[2025-08-04 16:42] LABS: Potassium 4.9 mmol/L (3.5-5.1); Sodium 142 mmol/L (136-145)
[2025-08-04 16:43] LABS: Anion Gap 9 (5-15); Calcium 8.9 mg/dL (8.7-10.4); Carbon Dioxide 25 mmol/L (20-31)
[2025-08-04 16:46] LABS: Urine Protein, UAD 1+ (Negative)
[2025-08-04 16:48] LABS: BUN/Creatinine Ratio 17.1 (10.0-20.0); Glucose 99 mg/dL (74-106)
[2025-08-04 16:55] LABS: Blood Urea Nitrogen 24 mg/dL (9-23); Chloride 108 mmol/L (98-107)
[2025-08-04] MEDS ORDERED: ONDANSETRON HCL 4 MG/2 ML VIAL IV PRN (17:45)
[2025-08-04] MEDS ORDERED: NITROGLYCERIN 0.4 MG SL TAB SL PRN (17:45)
[2025-08-04] MEDS ORDERED: MORPHINE SULFATE 4 MG/ML SYR/VIAL IV PRN (17:45)
[2025-08-04] MEDS: TAMSULOSIN HYDROCHLORIDE 0.4 MG CAP PO SCH (18:15)
[2025-08-04 18:31] LABS: INR 1.05 (0.9-1.15); Partial Thromboplastin Time 28.6 SEC (24.5-34.5); Prothrombin Time 11.1 sec (9.3-11.8)
[2025-08-04] MEDS: SODIUM CHLORIDE 0.9% 1,000 ML IV SCH (18:32)
--- NOTE | 2025-08-04 18:35 | DVH ---
EXAM: CT CT AB PEL WO CON-NO ORAL OR IV INDICATION: hematuria TECHNIQUE: Volumetric multidetector CT images of the abdomen and pelvis were obtained without contrast. All CT scans at this facility use dose modulation, iterative reconstruction, and/or weight based dosing when appropriate to reduce radiation dose to as low as reasonably achievable. COMPARISON: None FINDINGS: [LOWER CHEST]: Atelectasis and/or scarring in bilateral lung bases. The cardiac size is normal without pericardial effusion. [LIVER]: Normal hepatic size without suspicious focal lesion. [GALLBLADDER AND BILIARY TREE]: No cholelithiasis. [SPLEEN]: Unremarkable. [PANCREAS]: Unremarkable. [ADRENAL GLANDS]: Unremarkable [KIDNEYS]: No hydronephrosis. No nephroureterolithiasis. No suspicious focal lesion. [BLADDER]: Unremarkable for the degree distention. [REPRODUCTIVE ORGANS]: Unremarkable. [BOWEL/MESENTERY]: Stomach is normal. Moderate to severe sigmoid diverticulosis with mild descending colonic diverticulosis. No CT evidence of bowel obstruction. [ASCITES]: Absent [LYMPHADENOPATHY]: No pathologically enlarged lymph nodes by CT size criteria [VASCULATURE]: Prominent fusiform infrarenal abdominal aortic aneurysm measuring up to 5.4 cm. Fusiform bilateral common iliac artery aneurysms measuring up to 2 cm. [ABDOMINAL WALL]: Unremarkable. [MUSCULOSKELETAL]: No acute fracture or aggressive focal osseous lesion. Multifocal degenerative change of the visualized spine. IMPRESSION: 1. No hydronephrosis or nephroureterolithiasis. 2. Prominent fusiform infrarenal abdominal aortic aneurysm measuring up to 5.4 cm. 3. Fusiform bilateral common iliac artery aneurysms measuring up to 2 cm.
--- NOTE | 2025-08-04 20:09 | DVH ---
INDICATION: hematuria TECHNIQUE: Multiple real-time sonographic images of the kidneys and bladder were obtained. COMPARISON: None FINDINGS: RIGHT kidney measures 9.2 cm in length. No stones or hydronephrosis. LEFT kidney measures 9.2 cm in length. Right lower pole simple appearing cyst measuring 1.8 cm. No stones or hydronephrosis. No large intraluminal masses are seen in the bladder. IMPRESSION: Unremarkable examination.
[2025-08-04] MEDS: CARBIDOPA W LEVODOPA 25/100mg TABLET PO SCH (21:36)
[2025-08-04 22:51] VITALS: PULSE 89; RESP 96; O2SAT 96
[2025-08-04 23:30] VITALS: BP 140/87; PULSE 83; RESP 17; TEMP 98.1; O2SAT 99
[2025-08-04 23:39] VITALS: BP 140/87; PULSE 83; RESP 17; TEMP 98.1; O2SAT 99
[2025-08-05 01:00] VITALS: BP 126/78; PULSE 79; RESP 18; TEMP 97.7; O2SAT 99
--- NOTE | 2025-08-05 02:04 | DVHHP2 ---
Admitting Diagnosis: Gross Hematuria History of Present Illness History Source: Patient Exam Limitations: No limitations HPI Mr. Pablo Hsieh is an 80 year old male with a history of Prostate cancer, AAA, Appendectomy who presents with a chief complaint of hematuria. Patient repo rts that he has been experiencing hematuria with associated penile pain and decreased urine output since earlier this morning. Patient relays that he visited his PCP yesterday and was advised to come to the ED for further evaluation. Patient denies any N/V/D, flank pain, abdominal pain, or fever, any further blood in urine. Home Meds Active Scripts Amoxicillin & Pot Clavulanate (AUGMENTIN TABLET) 875 Mg Tb, 875 MG PO BID for 7 Days, #14 TAB Prov:ZACHARY WANG MD 10/09/24 Aspirin (Aspirin Ec) 81 Mg Tab, 81 MG PO DAILY, #60 TAB Prov:MATTIE SPRINGER MD 07/08/24 Reported Medications Carbidopa-Levodopa (Carbidopa/Levodopa Odt 25-100 mg) 1 Tab Tab, 1 TAB PO, TAB 07/04/24 Tamsulosin HCl (Tamsulosin Hydrochloride) 0.4 Mg Cap, 0.4 MG PO, CAP 07/04/24 Bupropion Hcl (Bupropion Hcl Er) 150 Mg Tab, 1 TAB PO BID, #60 TAB 5 Refills 07/04/24 Leflunomide (Arava) 20 Mg Tab, 1 TAB PO DAILY, #30 TAB 07/04/24 Atorvastatin Calcium (ATORVASTATIN CALCIUM) 20 Mg Tab, 1 TAB PO DAILY, #30 TAB 5 Refills 07/04/24 Past Medical History Cardiac: No pertinent Hx Pulmonary: No pertinent Hx Central Nervous System: No pertinent Hx GI: No pertinent Hx Hemotology/Oncology: Cancer (prostate) Hepatobiliary: No pertinent Hx Psychiatric: No pertinent Hx Musculoskeletal: No pertinent Hx Rheumotologic: No pertinent Hx Infectious Disease: No peritnent Hx ENT: No pertinent Hx Renal/: No pertinent Hx Endocrine: No pertinent Hx Dermatology: No pertinent Hx Others AAA Past Surgical History: Appendectomy Patient Family History: Cardiovascular disease G8 MOTHER, FH: cancer G8 FATHER, FH: multiple sclerosis G8 SISTER Smoker: No Hx (Negative) Alocohol: None Drugs: None Lives with: With family Domestic Violence: Neg Review of Systems Constitutional: No symptom reported Ears, Nose, & Throat: No symptom reported Eyes: No symptom reported Pulmonary/Respiratory: No symptom reported Cardiovascular: No symptom reported Gastrointestinal: No symptom reported Genitourinary: No symptom reported Musculoskeletal: No symptom reported Skin: No symptom reported Psychiatric: No symptom reported Endocrine: No symptom reported Hemotologic/Lymphatic: No symptom reported H&P Exam Vital Signs Vital Signs Date Time Temp Pulse Resp B/P (MAP) Pulse Ox O2 Delivery O2 Flow Rate FiO2 08/05/25 01:00 97.7 79 18 126/78 (94) 99 97.7 08/04/25 23:35 Room Air* 0 21 General Appeara: Well developed, Well nourished, Normal Appearance Head Exam: Normal inspection Neck Exam: Normal inspection, Non-tender, Normal alignment Eye Exam: bilateral eye Normal inspection, bilateral eye PERRL, bilateral eye EOMI Ear Exam: bilateral ear Auricle normal Nasal Exam: Normal inspection Mouth: Normal Inspection Pulmonary/Respiratory: Normal inspection, Normal breath sounds, Chest non- tender, Lungs clear Cardiovascular/Chest: Normal inspection, Regular rate, Normal Rhythm Peripheral Pulses: 2+ dorsalis pedis (R), 2+ dorsalis pedis (L), 2+ Radial (R), 2+ Radial (L) Abdominal Exam: Normal bowel sounds, Soft, 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, Normal speech, PERRL Neuro/Mental St: Alert, Oriented Eye contact/ Speech: Cooperative Skin Exam: Normal inspection, Normal color SEPSIS Sepsis Screen Date sepsis recognized/suspect: Aug 04, 2025 Time Sepsis recognized/suspect: 1539 Recent Procedure: No On Antibiotic Therapy: No Respiratory Rate >20: No Heart Rate >90: No Temp<36 C (96.8 F) or >38.3 C: No SBP <90 or MAP <65 mmHG: No New Acute Mental Status Change: No Is the patient on CPAP, BIPAP,: No Vital Signs Date Time Temp Pulse Resp B/P (MAP) Pulse Ox O2 Delivery O2 Flow Rate FiO2 08/05/25 01:00 97.7 79 18 126/78 (94) 99 97.7 08/04/25 23:39 98.1 83 17 140/87 (104) 99 98.1 08/04/25 23:35 Room Air* 0 21 08/04/25 23:30 98.1 83 17 140/87 (104) 99 98.1 08/04/25 22:51 89 96 96 Room Air* 0 21 08/04/25 22:48 98.3 90 16 152/69 (96) 96 98.3 08/04/25 18:15 98.2 101 18 108/69 (82) 97 98.2 Laboratory Tests Test 08/04/25 16:15 White Blood Count 6.7 10^3/uL (4.4-10.8) Medications Medications Dose Ordered Sig/Ann-Marie Route Start Time Stop Time Status Last Admin Dose Admin Carbidopa/Levodopa 1 tab TID PO 08/04/25 22:00 08/04/25 21:36 1 TAB Sodium Chloride 1,000 ml @ 75 mls/hr [id number] IV 08/04/25 17:45 08/04/25 18:32 75 MLS/HR Tamsulosin HCl 0.4 mg QPM PO 08/04/25 18:00 08/04/25 18:15 0.4 MG Labs/Xrays Labs Test 08/04/25 18:02 08/04/25 16:27 08/04/25 16:15 Range/Units Prothrombin Time 11.1 9.3-11.8 sec Prothrombin Time INR 1.05 0.9-1.15 Activated Partial Thromboplast Time 28.6 24.5-34.5 SEC Urine Color Light-red Yellow Urine Clarity Ex.turbid Clear Urine pH 5.5 5.0-9.0 Urine Specific [place] 1.019 1.001-1.035 Urine Protein 1+ H Negative Urine Ketones Trace Negative Urine Blood 3+ H Negative /uL Urine Nitrite Negative Negative Urine Bilirubin Negative Negative Urine Urobilinogen Normal Negative mg/dL Urine Leukocyte Esterase 1+ Negative /uL Urine RBC 9354 0 - 3 /hpf Urine Microscopic WBC 2 0-3 /HPF Urine Squamous Epithelial Cells None seen <5 /hpf Urine Bacteria None seen None Seen /hpf Urine Glucose Normal Normal mg/dL White Blood Count 6.7 4.4-10.8 10^3/uL Red Blood Count 4.04 L 4.5-5.90 10^6/uL Hemoglobin 11.4 L 13.5-17.5 g/dL Hematocrit 35.5 L 41.0-53.0 % Mean Corpuscular Volume 87.8 80.0-100.0 fL Mean Corpuscular Hemoglobin 28.3 28.0-32.0 pg Mean Corpuscular Hemoglobin Concent 32.3 32.0-36.0 g/dL Red Cell Distribution Width 17.2 H 11.8-14.3 % Platelet Count 236 140-450 10^3/uL Mean Platelet Volume 6.8 L 6.9-10.8 fL Neutrophils (%) (Auto) 59.2 37.0-80.0 % Lymphocytes (%) (Auto) 26.8 10.0-50.0 % Monocytes (%) (Auto) 10.0 0.0-12.0 % Eosinophils (%) (Auto) 2.8 0.0-7.0 % Basophils (%) (Auto) 1.2 0.0-2.0 % Neutrophils # (Auto) 4.0 1.6-8.6 10 ^3/uL Lymphocytes # (Auto) 1.8 0.4-5.4 10 ^3/uL Monocytes # (Auto) 0.7 0-1.3 10 ^3/uL Eosinophils # (Auto) 0.2 0-0.8 10 ^3/uL Basophils # (Auto) 0.1 0-0.2 10 ^3/uL Nucleated Red Blood Cells 0.0 % Sodium Level 142 136-145 mmol/L Potassium Level 4.9 3.5-5.1 mmol/L Chloride Level 108 H 98-107 mmol/L Carbon Dioxide Level 25 20-31 mmol/L Anion Gap 9 5-15 Blood Urea Nitrogen 24 H 9-23 mg/dL Creatinine 1.40 H 0.700-1.30 mg/dL Glomerular Filtration Rate Calc 50 >90 mL/min BUN/Creatinine Ratio 17.1 10.0-20.0 Serum Glucose 99 74-106 mg/dL Calcium Level 8.9 8.7-10.4 mg/dL Assessment/Plan Problem List: (1) Hematuria Plan This is a 80 year old male with listed medical history who presents with hematuria sent from PCP office. 1. Gross Hematuria 2. hx of Prostate cancer 3. AAA 5.4 cm 4. hx of Appendectomy Plan Admitted to [facility] surgical Urology consultation CBI IV fluids Continue home medications Monitor CBC Discussed all above with patient who verbalizes agreement and understanding of care plan. All questions were answered. Discussed with supervising/admitting MD. Plan discussed with: Patient, Other Code Visit Code Visit Total Time (mins): 45 Additional Comments Additional Comments Additional Comments Patient's chart is reviewed and discussed with the nurse practitioner. Patient is seen evaluated and admitted by [employer] personnel scheduler. I agree with her evaluation, documentation, assessment and care plan as outlined. Patient is seen and evaluated by me earlier today. Discussed about care plan with the patient's/ along with the nurse at bedside. RENO KIM Aug 05, 2025 02:04 MATTIE SPRINGER MD Aug 05, 2025 14:23
[2025-08-05 05:00] VITALS: BP 111/59; PULSE 78; RESP 19; TEMP 98.8; O2SAT 96
[2025-08-05 06:45] LABS: Potassium 4.1 mmol/L (3.5-5.1); Sodium 142 mmol/L (136-145)
[2025-08-05 06:46] LABS: Anion Gap 9 (5-15); Carbon Dioxide 23 mmol/L (20-31)
[2025-08-05 06:48] LABS: Calcium 8.4 mg/dL (8.7-10.4); Chloride 110 mmol/L (98-107)
[2025-08-05 06:49] LABS: Hematocrit 32.5 % (41.0-53.0); Hemoglobin 10.5 g/dL (13.5-17.5); Mean Corpuscular Hemoglobin 28.4 pg (28.0-32.0); Mean Corpuscular Volume 88.0 fL (80.0-100.0); Nucleated Red Blood Cells % 0.0 %
[2025-08-05 06:51] LABS: BUN/Creatinine Ratio 14.8 (10.0-20.0); Blood Urea Nitrogen 18 mg/dL (9-23); Glucose 81 mg/dL (74-106)
[2025-08-05 07:50] VITALS: RESP 18
[2025-08-05 08:30] VITALS: BP 137/75; PULSE 73; RESP 18; TEMP 98.5; O2SAT 97
--- NOTE | 2025-08-05 09:08 | DVHINCON2 ---
Date of service: Aug 05, 2025 Referring Physician Vineet Reason for Consultation gross hematuria History of Present Illness 80 year old male with a history of Prostate cancer, AAA, Appendectomy who presents with a chief complaint of hematuria. Patient reports that he has been experiencing hematuria with associated penile pain and decreased urine output since earlier this morning. Patient relays that he visited his PCP yesterday and was advised to come to the ED for further evaluation. Patient denies any N/V/D, flank pain, abdominal pain, or fever, any further blood in urine. Urine clear now. Home Meds Active Scripts Amoxicillin & Pot Clavulanate (AUGMENTIN TABLET) 875 Mg Tb, 875 MG PO BID for 7 Days, #14 TAB Prov:ZACHARY WANG MD 10/09/24 Aspirin (Aspirin Ec) 81 Mg Tab, 81 MG PO DAILY, #60 TAB Prov:MATTIE SPRINGER MD 07/08/24 Reported Medications Carbidopa-Levodopa (Carbidopa/Levodopa Odt 25-100 mg) 1 Tab Tab, 1 TAB PO, TAB 07/04/24 Tamsulosin HCl (Tamsulosin Hydrochloride) 0.4 Mg Cap, 0.4 MG PO, CAP 07/04/24 Bupropion Hcl (Bupropion Hcl Er) 150 Mg Tab, 1 TAB PO BID, #60 TAB 5 Refills 07/04/24 Leflunomide (Arava) 20 Mg Tab, 1 TAB PO DAILY, #30 TAB 07/04/24 Atorvastatin Calcium (ATORVASTATIN CALCIUM) 20 Mg Tab, 1 TAB PO DAILY, #30 TAB 5 Refills 07/04/24 Past Medical History Cardiac: No pertinent Hx Pulmonary: No pertinent Hx Central Nervous System: No pertinent Hx GI: No pertinent Hx Hemotology/Oncology: Cancer (prostate) Hepatobiliary: No pertinent Hx Psychiatric: No pertinent Hx Musculoskeletal: No pertinent Hx Rheumotologic: No pertinent Hx Infectious Disease: No peritnent Hx ENT: No pertinent Hx Renal/: No pertinent Hx Endocrine: No pertinent Hx Dermatology: No pertinent Hx Others AAA Past Surgical History Appendectomy Prostate biopsy in 2018 Radiation therapy Family History: Cardiovascular disease G8 MOTHER, FH: cancer G8 FATHER, FH: multiple sclerosis G8 SISTER Allergies: Coded Allergies: NO KNOWN ALLERGIES (Unverified , 07/04/24) Home Meds Active Scripts Amoxicillin & Pot Clavulanate (AUGMENTIN TABLET) 875 Mg Tb, 875 MG PO BID for 7 Days, #14 TAB Prov:ZACHARY WANG MD 10/09/24 Aspirin (Aspirin Ec) 81 Mg Tab, 81 MG PO DAILY, #60 TAB Prov:MATTIE SPRINGER MD 07/08/24 Reported Medications Carbidopa-Levodopa (Carbidopa/Levodopa Odt 25-100 mg) 1 Tab Tab, 1 TAB PO, TAB 07/04/24 Tamsulosin HCl (Tamsulosin Hydrochloride) 0.4 Mg Cap, 0.4 MG PO, CAP 07/04/24 Bupropion Hcl (Bupropion Hcl Er) 150 Mg Tab, 1 TAB PO BID, #60 TAB 5 Refills 07/04/24 Leflunomide (Arava) 20 Mg Tab, 1 TAB PO DAILY, #30 TAB 07/04/24 Atorvastatin Calcium (ATORVASTATIN CALCIUM) 20 Mg Tab, 1 TAB PO DAILY, #30 TAB 5 Refills 07/04/24 Current Medications Current Medications Medications (Trade) Dose Ordered Sig/Ann-Marie Route PRN Reason Start Time Stop Time Status Last Admin Atorvastatin Calcium (Lipitor) 20 mg HS PO 08/05/25 22:00 Tamsulosin HCl (Flomax) 0.4 mg QPM PO 08/04/25 18:00 08/04/25 18:15 Patient Own Medication 1 tab BID PO 08/04/25 22:00 Patient Own Medication 1 tab DAILY PO 08/05/25 10:00 Carbidopa/Levodopa (Sinemet 25/ 100MG) 1 tab TID PO 08/04/25 22:00 08/05/25 07:10 Nitroglycerin (Ntrostat Sublingual) 0.4 mg Q5MINP PRN SL FOR CHEST PAIN 08/04/25 17:45 Morphine Sulfate 2 mg Q30M PRN IV FOR CHEST PAIN 08/04/25 17:45 Sodium Chloride 1,000 ml @ 75 mls/hr [id number] IV 08/04/25 17:45 08/05/25 07:13 Ondansetron HCl (Zofran) 4 mg Q4HPRN PRN IV NAUSEA / VOMITING 08/04/25 17:45 Review of Systems Constitutional: No symptom reported Ears, Nose, & Throat: No symptom reported Eyes: No symptom reported Pulmonary/Respiratory: No symptom reported Cardiovascular: No symptom reported Gastrointestinal: No symptom reported Genitourinary: No symptom reported Musculoskeletal: No symptom reported Skin: No symptom reported Psychiatric: No symptom reported Endocrine: No symptom reported Hemotologic/Lymphatic: No symptom reported Vital Signs Vital Signs Date Time Temp Pulse Resp B/P (MAP) Pulse Ox O2 Delivery O2 Flow Rate FiO2 08/05/25 07:50 18 Nasal Cannula* 2 28 08/05/25 05:00 98.8 78 111/59 (76) 96 98.8 Physical Exam Vital Signs Date Time Temp Pulse Resp B/P (MAP) Pulse Ox O2 Delivery O2 Flow Rate FiO2 08/05/25 01:00 97.7 79 18 126/78 (94) 99 97.7 08/04/25 23:35 Room Air* 0 21 General Appeara: Well developed, Well nourished, Normal Appearance Head Exam: Normal inspection Neck Exam: Normal inspection, Non-tender, Normal alignment Eye Exam: bilateral eye Normal inspection, bilateral eye PERRL, bilateral eye EOMI Ear Exam: bilateral ear Auricle normal Nasal Exam: Normal inspection Mouth: Normal Inspection Pulmonary/Respiratory: Normal inspection, Normal breath sounds, Chest non- tender, Lungs clear Cardiovascular/Chest: Normal inspection, Regular rate, Normal Rhythm Peripheral Pulses: 2+ dorsalis pedis (R), 2+ dorsalis pedis (L), 2+ Radial (R), 2+ Radial (L) Abdominal Exam: Normal bowel sounds, Soft, 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, Normal speech, PERRL Neuro/Mental St: Alert, Oriented Eye contact/ Speech: Cooperative Skin Exam: Normal inspection, Normal color Labs/Diagnostic Data Labs Test 08/05/25 05:58 08/04/25 18:02 08/04/25 16:27 Range/Units White Blood Count 6.9 4.4-10.8 10^3/uL Red Blood Count 3.70 L 4.5-5.90 10^6/uL Hemoglobin 10.5 L 13.5-17.5 g/dL Hematocrit 32.5 L 41.0-53.0 % Mean Corpuscular Volume 88.0 80.0-100.0 fL Mean Corpuscular Hemoglobin 28.4 28.0-32.0 pg Mean Corpuscular Hemoglobin Concent 32.3 32.0-36.0 g/dL Red Cell Distribution Width 16.9 H 11.8-14.3 % Platelet Count 201 140-450 10^3/uL Mean Platelet Volume 6.7 L 6.9-10.8 fL Neutrophils (%) (Auto) 62.2 37.0-80.0 % Lymphocytes (%) (Auto) 20.5 10.0-50.0 % Monocytes (%) (Auto) 13.5 H 0.0-12.0 % Eosinophils (%) (Auto) 2.8 0.0-7.0 % Basophils (%) (Auto) 1.0 0.0-2.0 % Neutrophils # (Auto) 4.3 1.6-8.6 10 ^3/uL Lymphocytes # (Auto) 1.4 0.4-5.4 10 ^3/uL Monocytes # (Auto) 0.9 0-1.3 10 ^3/uL Eosinophils # (Auto) 0.2 0-0.8 10 ^3/uL Basophils # (Auto) 0.1 0-0.2 10 ^3/uL Nucleated Red Blood Cells 0.0 % Sodium Level 142 136-145 mmol/L Potassium Level 4.1 3.5-5.1 mmol/L Chloride Level 110 H 98-107 mmol/L Carbon Dioxide Level 23 20-31 mmol/L Anion Gap 9 5-15 Blood Urea Nitrogen 18 9-23 mg/dL Creatinine 1.22 0.700-1.30 mg/dL Glomerular Filtration Rate Calc 59 >90 mL/min BUN/Creatinine Ratio 14.8 10.0-20.0 Serum Glucose 81 74-106 mg/dL Calcium Level 8.4 L 8.7-10.4 mg/dL Prothrombin Time 11.1 9.3-11.8 sec Prothrombin Time INR 1.05 0.9-1.15 Activated Partial Thromboplast Time 28.6 24.5-34.5 SEC Urine Color Light-red Yellow Urine Clarity Ex.turbid Clear Urine pH 5.5 5.0-9.0 Urine Specific [place] 1.019 1.001-1.035 Urine Protein 1+ H Negative Urine Ketones Trace Negative Urine Blood 3+ H Negative /uL Urine Nitrite Negative Negative Urine Bilirubin Negative Negative Urine Urobilinogen Normal Negative mg/dL Urine Leukocyte Esterase 1+ Negative /uL Urine RBC 9354 0 - 3 /hpf Urine Microscopic WBC 2 0-3 /HPF Urine Squamous Epithelial Cells None seen <5 /hpf Urine Bacteria None seen None Seen /hpf Urine Glucose Normal Normal mg/dL PATIENT: OLU SANTANA ACCT: [id number] UNIT: [id number] : 1945 LOC: OVERFLOW ROOM / BED: 1019-ER / A AGE / SEX: 80 / M ADM STATUS: ADM IN SERVICE [id number] ORDERING PHYSICIAN: MATTIE SPRINGER MD PROCEDURE(s): ABPL - CT AB PEL WO CON-NO ORAL OR IV REASON: hematuria ORDER NUMBER(s): [id number], ACCESSION NUMBER(s): [id number] EXAM: CT CT AB PEL WO CON-NO ORAL OR IV INDICATION: hematuria TECHNIQUE: Volumetric multidetector CT images of the abdomen and pelvis were obtained without contrast. All CT scans at this facility use dose modulation, iterative reconstruction, and/or weight based dosing when appropriate to reduce radiation dose to as low as reasonably achievable. COMPARISON: None FINDINGS: [LOWER CHEST]: Atelectasis and/or scarring in bilateral lung bases. The cardiac size is normal without pericardial effusion. [LIVER]: Normal hepatic size without suspicious focal lesion. [GALLBLADDER AND BILIARY TREE]: No cholelithiasis. [SPLEEN]: Unremarkable. [PANCREAS]: Unremarkable. [ADRENAL GLANDS]: Unremarkable [KIDNEYS]: No hydronephrosis. No nephroureterolithiasis. No suspicious focal lesion. [BLADDER]: Unremarkable for the degree distention. [REPRODUCTIVE ORGANS]: Unremarkable. [BOWEL/MESENTERY]: Stomach is normal. Moderate to severe sigmoid diverticulosis with mild descending colonic diverticulosis. No CT evidence of bowel obstruction. [ASCITES]: Absent [LYMPHADENOPATHY]: No pathologically enlarged lymph nodes by CT size criteria [VASCULATURE]: Prominent fusiform infrarenal abdominal aortic aneurysm measuring up to 5.4 cm. Fusiform bilateral common iliac artery aneurysms measuring up to 2 cm. [ABDOMINAL WALL]: Unremarkable. [MUSCULOSKELETAL]: No acute fracture or aggressive focal osseous lesion. Multifocal degenerative change of the visualized spine. IMPRESSION: 1. No hydronephrosis or nephroureterolithiasis. 2. Prominent fusiform infrarenal abdominal aortic aneurysm measuring up to 5.4 cm. 3. Fusiform bilateral common iliac artery aneurysms measuring up to 2 cm. ATED BY: ROBERTO CHANEY MD DICTATED DATE/TIME: 08/04/251832 SIGNED BY: ROBERTO CHANEY MD SIGNED DATE/TIME: 08/04/251832 CC: Assessment Gross hematuria Prostate cancer Plan/Recommendation PSA Outpatient cystoscopy TBa Plan discussed with: Patient, Other PARVIN MOSELEY MD Aug 05, 2025 09:07
[2025-08-05 12:30] VITALS: BP 147/80; PULSE 69; RESP 16; TEMP 97.6; O2SAT 99
--- NOTE | 2025-08-05 14:38 | DVHDS2 ---
Discharge Summary Date of Admission Aug 04, 2025 at 17:44 Date of Discharge: Aug 05, 2025 Labs/Diagnostic Data: Laboratory Results Test 08/05/25 05:58 08/04/25 18:02 08/04/25 16:27 White Blood Count 6.9 10^3/uL (4.4-10.8) Red Blood Count 3.70 10^6/uL (4.5-5.90) Hemoglobin 10.5 g/dL (13.5-17.5) Hematocrit 32.5 % (41.0-53.0) Mean Corpuscular Volume 88.0 fL (80.0-100.0) Mean Corpuscular Hemoglobin 28.4 pg (28.0-32.0) Mean Corpuscular Hemoglobin Concent 32.3 g/dL (32.0-36.0) Red Cell Distribution Width 16.9 % (11.8-14.3) Platelet Count 201 10^3/uL (140-450) Mean Platelet Volume 6.7 fL (6.9-10.8) Neutrophils (%) (Auto) 62.2 % (37.0-80.0) Lymphocytes (%) (Auto) 20.5 % (10.0-50.0) Monocytes (%) (Auto) 13.5 % (0.0-12.0) Eosinophils (%) (Auto) 2.8 % (0.0-7.0) Basophils (%) (Auto) 1.0 % (0.0-2.0) Neutrophils # (Auto) 4.3 10 ^3/uL (1.6-8.6) Lymphocytes # (Auto) 1.4 10 ^3/uL (0.4-5.4) Monocytes # (Auto) 0.9 10 ^3/uL (0-1.3) Eosinophils # (Auto) 0.2 10 ^3/uL (0-0.8) Basophils # (Auto) 0.1 10 ^3/uL (0-0.2) Nucleated Red Blood Cells 0.0 % Sodium Level 142 mmol/L (136-145) Potassium Level 4.1 mmol/L (3.5-5.1) Chloride Level 110 mmol/L (98-107) Carbon Dioxide Level 23 mmol/L (20-31) Anion Gap 9 (5-15) Blood Urea Nitrogen 18 mg/dL (9-23) Creatinine 1.22 mg/dL (0.700-1.30) Glomerular Filtration Rate Calc 59 mL/min (>90) BUN/Creatinine Ratio 14.8 (10.0-20.0) Serum Glucose 81 mg/dL (74-106) Calcium Level 8.4 mg/dL (8.7-10.4) Prothrombin Time 11.1 sec (9.3-11.8) Prothrombin Time INR 1.05 (0.9-1.15) Activated Partial Thromboplast Time 28.6 SEC (24.5-34.5) Urine Color Light-red (Yellow) Urine Clarity Ex.turbid (Clear) Urine pH 5.5 (5.0-9.0) Urine Specific [place] 1.019 (1.001-1.035) Urine Protein 1+ (Negative) Urine Ketones Trace (Negative) Urine Blood 3+ /uL (Negative) Urine Nitrite Negative (Negative) Urine Bilirubin Negative (Negative) Urine Urobilinogen Normal mg/dL (Negative) Urine Leukocyte Esterase 1+ /uL (Negative) Urine RBC 9354 /hpf (0 - 3) Urine Microscopic WBC 2 /HPF (0-3) Urine Squamous Epithelial Cells None seen /hpf (<5) Urine Bacteria None seen /hpf (None Seen) Urine Glucose Normal mg/dL (Normal) Other Laboratory Tests 08/05/25 05:58 Brief Hx & Hospital Course: Mr. Pablo Hsieh is an 80 year old male with a history of Prostate cancer, AAA, Appendectomy who presents with a chief complaint of hematuria. Patient reports that he has been experiencing hematuria with associated penile pain and decreased urine output since earlier this morning. Patient relays that he visited his PCP yesterday and was advised to come to the ED for further evaluation. Patient denies any N/V/D, flank pain, abdominal pain, or fever, any further blood in urine. He is brought into the hospital and observed overnight for gross hematuria. He is evaluated by urologist this morning. He is recommending outpatient follow up for cystoscopy. Patient has a history of prostate cancer now with the gross hematuria. Patient is taking aspirin at home. Therefore I have advised the patient and his who is at bedside to stop taking it for next two weeks. Meantime he is also encouraged plenty of fluid intake. Today his gross hematuria has resolved. His urine is yellow and clear. Therefore it is felt he could be safely discharged home. I have talked with the patient/his along with the nurse at bedside regarding his hospital diagnosis, urology evaluation and recommendations, stopping aspirin, discharge follow up plan of care. They have verbalized understanding of these and agree with the care plan as outlined. Consults/Reason for consult CONSULTATION REPORT . ................................................................................ ............................................................................... Date of service: Aug 05, 2025 Referring Physician Vineet Reason for Consultation gross hematuria History of Present Illness 80 year old male with a history of Prostate cancer, AAA, Appendectomy who presents with a chief complaint of hematuria. Patient reports that he has been experiencing hematuria with associated penile pain and decreased urine output since earlier this morning. Patient relays that he visited his PCP yesterday and was advised to come to the ED for further evaluation. Patient denies any N/V/D, flank pain, abdominal pain, or fever, any further blood in urine. Assessment Gross hematuria Prostate cancer Plan/Recommendation PSA Outpatient cystoscopy TBa Plan discussed with: Patient, Other PARVIN MOSELEY MD Aug 05, 2025 09:07 Operations or Procedures PROCEDURE(s): ABPL - CT AB PEL WO CON-NO ORAL OR IV REASON: hematuria ORDER NUMBER(s): [id number], ACCESSION NUMBER(s): [id number] EXAM: CT CT AB PEL WO CON-NO ORAL OR IV INDICATION: hematuria TECHNIQUE: Volumetric multidetector CT images of the abdomen and pelvis were obtained without contrast. All CT scans at this facility use dose modulation, iterative reconstruction, and/or weight based dosing when appropriate to reduce radiation dose to as low as reasonably achievable. COMPARISON: None IMPRESSION: 1. No hydronephrosis or nephroureterolithiasis. 2. Prominent fusiform infrarenal abdominal aortic aneurysm measuring up to 5.4 cm. 3. Fusiform bilateral common iliac artery aneurysms measuring up to 2 cm. ATED BY: ROBERTO CHANEY MD DICTATED DATE/TIME: 08/04/25 6128 Condition at Discharge: Stable Final Diagnosis/Problems List Gross hematuria possibly secondary aspirin, history of prostate cancer Discharge Disposition: Home Discharge Instruct/Medications Diet: Consistent carbohydrate, Cardiac 2g Na,low cholest Diet comment: Drink plenty of liquids. Activity: No Restrictions, As Tolerated Follow Up/Referral: Dr. Parvin Brown urologist in two weeks for outpatient cystoscopy and further evaluation of hematuria Medications: Stop taking aspirin blood thinner for next two weeks due to blood in the urine. Then okay to resume aspirin per recommendations from Urology. Scheduled Amoxicillin & Pot Clavulanate (Augmentin Tablet), 875 MG PO BID Aspirin (Aspirin Ec), 81 MG PO DAILY Atorvastatin Calcium (Atorvastatin Calcium), 1 TAB PO DAILY, (Reported) Bupropion Hcl (Bupropion Hcl Er), 1 TAB PO BID, (Reported) Leflunomide (Arava), 1 TAB PO DAILY, (Reported) Miscellaneous Medications Carbidopa-Levodopa (Carbidopa/Levodopa Odt 25-100 mg), 1 TAB PO, (Reported) Tamsulosin HCl (Tamsulosin Hydrochloride), 0.4 MG PO, (Reported) Discharge Statement: "Patient was advised to return to the ER or call 911 if any headaches, dizziness, shortness of breath, chest pain, abdominal pain, bleeding, fevers, or worsening of medical condition. Patient was counseled about treatment plan, medications, possible side effects, patientverbalized understanding. All questions were answered to the best of my ability. This discharge took greater then 30 minutes in planning, reviewing documentation, counseling the patient, and discussing with other team members." ASSESSMENT ASSESSMENT Assessment Gross hematuria possibly secondary aspirin, history of prostate cancer MATTIE SPRINGER MD Aug 05, 2025 14:38
[2025-08-05 16:30] VITALS: BP 121/78; PULSE 75; RESP 17; TEMP 98; O2SAT 93
[2025-08-05] MEDS ORDERED: ATORVASTATIN 20 MG TAB PO SCH (22:00)
== END 2025-08-05 17:15 | disposition home or self-care (01) | DRG 696 ==
LOC: ER 15:35 → OVERFLOW 17:44 → WEST WING 23:30
PROVIDERS: ADMIT Hospitalist; ATTEND Hospitalist
DX: R31.0 Gross hematuria (principal); T39.015A Adverse effect of aspirin, initial encounter; Z85.46 Personal history of malignant neoplasm of prostate; Z79.2 Long term (current) use of antibiotics; Z79.82 Long term (current) use of aspirin; Z79.899 Other long term (current) drug therapy; Z82.49 Family history of ischemic heart disease and other diseases of the circulatory system; Z82.0 Family history of epilepsy and other diseases of the nervous system; Z90.49 Acquired absence of other specified parts of digestive tract; Y92.89 Other specified places as the place of occurrence of the external cause
CPT/HCPCS: 36415; 74176; 76775; 80048; 81001; 85025; 85610; 85730; 96360; G0378